=== PATIENT | female | born 1985 ===

== ENCOUNTER 2017-12-26 17:36 | Inpatient (IN) | payer MEDICAID ==
--- NOTE | 2017-12-26 18:19 | C.PDOC ---
History Of Present Illness 32 y/o female presents to the ER w/PMhx of asthma, kidney stones, and chronic kidney disease, presents to the ER complaining of left-sided abdominal pain and left sided back pain which has been present for the past 3 days. Patient states that she has left-sided kidney stone, she was supposed to have a stent placed but her kidney stone was too large. Patient reports that she had a nephrostomy tube placed by in October 2017. Denies having diarrhea, dysuria, hematuria, nausea, vomiting, fever, chills, abx use, and drug use. Of note, patient has history of kidney infection in 2013. Time Seen by Provider: 12/26/17 18:18 Chief Complaint (Nursing): Abdominal Pain History Per: Patient History/Exam Limitations: no limitations Onset/Duration Of Symptoms: Days Current Symptoms Are (Timing): Still Present Past Medical History Reviewed: Historical Data, Nursing Documentation, Vital Signs Vital Signs: Last Vital Signs Temp 98.2 F 12/27/17 07:40 Pulse 80 12/27/17 07:40 Resp 20 12/27/17 07:40 BP 100/65 12/27/17 07:40 Pulse Ox 100 12/27/17 07:40 - Medical History PMH: Asthma, Kidney Stones, Chronic Kidney Disease Other Surgeries: Hx of surgeries Family History: States: No Known Family Hx - Social History Hx Alcohol Use: No Hx Substance Use: No - Immunization History Hx Tetanus Toxoid Vaccination: No Hx Influenza Vaccination: No Hx Pneumococcal Vaccination: No Review Of Systems Except As Marked, All Systems Reviewed And Found Negative. Constitutional: Negative for: Fever, Chills Gastrointestinal: Positive for: Abdominal Pain. Negative for: Nausea, Vomiting, Diarrhea Genitourinary: Negative for: Dysuria, Hematuria Musculoskeletal: Positive for: Back Pain Physical Exam - Physical Exam Appears: Non-toxic, No Acute Distress Skin: Normal Color, Warm, Dry Head: Atraumatic, Normacephalic Eye(s): bilateral: Normal Inspection Nose: Normal Oral Mucosa: Moist Neck: Supple, Other (no meningeal signs) Chest: Symmetrical Cardiovascular: Rhythm Regular Respiratory: Normal Breath Sounds, No Rales, No Rhonchi, No Wheezing Gastrointestinal/Abdominal: Soft, Tenderness (LUQ and LLQ tenderness), No Guarding, No Rebound, Other (left-sided nephrostomy tube) Back: No CVA Tenderness Neurological/Psych: Oriented x3, Normal Speech, Normal Motor, Normal Sensation ED Course And Treatment - Laboratory Results Result Diagrams: 12/26/17 19:16 12/26/17 19:16 O2 Sat by Pulse Oximetry: 100 (RA) Pulse Ox Interpretation: Normal Medical Decision Making Medical Decision Making: Nephrostomy tube draining well: given L sided flank pain. paucity if records here will seek CT Plan: --Labs --UA --CT- Abd & Pelv. CT w/ Ureteral widening/ fullness on the left, however normal nephrostomy tube drainage. No signs of pyelo per CT Ovarian mass vs cyst on L, TVUS ordered. Pain not relapsing remitting- u/l torsion Given utereal widening/fullness on the left, w/ L flank pain and concominant finding of L ovarian cyst/mass will seek uro consult. [address] Codi Herbert, Away. Consulted Codi Dawson- to see in AM. UC. consulted Dr. Parker (hosp)- admit to his service rocephin started for L smelly nephrotomy, cloudy Disposition - Disposition Disposition: HOSPITALIZED Disposition Time: 21:50 Condition: GOOD - Clinical Impression Clinical Impression: Left flank pain - Scribe Statement The provider has reviewed the documentation as recorded by the Naomiibxiomara Nixon Provider Attestation: All medical record entries made by the Scribe were at my direction and personally dictated by me. I have reviewed the chart and agree that the record accurately reflects my personal performance of the history, physical exam, medical decision making, and the department course for this patient. I have also personally directed, reviewed, and agree with the discharge instructions and disposition.
[2017-12-26 19:19] LABS: BASO # 0.1 K/uL (0.0-0.2); BASO % 0.6 % (0.0-2.0); EOS # 0.3 K/uL (0.0-0.7); HEMOGLOBIN 12.7 g/dL (11.0-16.0); LYMPH # 2.8 K/uL (1.0-4.3); MEAN CELL VOLUME 80.2 fL (81.0-99.0); MEAN CORPUSCULAR HEMOGLOBIN 28.3 pg (27.0-31.0); MEAN CORPUSCULAR HGB CONC 35.3 g/dL (33.0-37.0); MEAN PLATELET VOLUME 7.4 fL (7.2-11.7); MONO # 0.5 K/uL (0.0-0.8); MONO % 5.6 % (0.0-10.0); NEUT # 4.7 K/uL (1.8-7.0); NEUT % 56.8 % (50.0-75.0); NRBC % 0.1 % (0.0-2.0); RBC 4.49 Mil/uL (3.80-5.20); RED CELL DISTRIBUTION WIDTH 14.3 % (11.5-14.5); WHITE BLOOD COUNT 8.3 K/uL (4.8-10.8)
[2017-12-26 19:22] LABS: SQUAMOUS EPITHIAL 3 /hpf (0-5); URINE BILIRUBIN NEGATIVE (NEGATIVE); URINE BLOOD NEGATIVE (NEGATIVE); URINE CLARITY Clear (Clear); URINE COLOR Yellow (YELLOW); URINE GLUCOSE (UA) NORMAL (Normal); URINE LEUKOCYTE ESTERASE TRACE Leu/uL (Negative); URINE PROTEIN NEGATIVE (NEGATIVE); URINE UROBILINOGEN NORMAL mg/dL (0.2-1.0)
[2017-12-26 19:33] LABS: ALB/GLOB RATIO 1.4 (1.0-2.1); ALBUMIN 4.4 g/dL (3.5-5.0); ALT/SGPT 16 U/L (9-52); AST/SGOT 14 U/L (14-36); BLOOD UREA NITROGEN 11 mg/dL (7-17); CALCIUM 9.6 mg/dl (8.6-10.4); GFR NON-AFRICAN AMERICAN > 60; LIPASE 236 U/L (23-300)
[2017-12-26] MEDS ORDERED: Iodixanol 320 MG/ML 100 ML BOTTLE IV ONE (20:07)
[2017-12-26 22:11] LABS: URINE BACTERIA MANY (<OCC); URINE BILIRUBIN NEGATIVE (NEGATIVE); URINE BLOOD 2+ (NEGATIVE); URINE CLARITY Turbid (Clear); URINE COLOR Yellow (YELLOW); URINE GLUCOSE (UA) NORMAL (Normal); URINE LEUKOCYTE ESTERASE 3+ Leu/uL (Negative); URINE PROTEIN 3+ mg/dL (NEGATIVE); URINE UROBILINOGEN NORMAL mg/dL (0.2-1.0)
[2017-12-26] MEDS ORDERED: cefTRIAXone 1 gm 1 GM/100 ML BAG IVPB ONE (22:31)
[2017-12-26] MEDS ORDERED: Sodium Chloride 0.9% 1,000 ML ONE (22:31)
[2017-12-26] MEDS: Sodium Chloride 0.9% 1,000 ML IV SCH (22:37)
[2017-12-27 01:06] VITALS: RESP 20
[2017-12-27] MEDS: Sodium Chloride 0.9% 1,000 ML IV SCH ×5 (06:00→21:44)
--- NOTE | 2017-12-27 11:27 | CT ---
Date of service: 12/26/2017 PROCEDURE: CT Abdomen and Pelvis with contrast HISTORY: L nephrostomy tube, LUQ pain COMPARISON: None available TECHNIQUE: Contrast dose: 100 mL Visipaque IV Radiation dose: Total exam DLP = 949.91 mGy-cm. This CT exam was performed using one or more of the following dose reduction techniques: Automated exposure control, adjustment of the mA and/or kV according to patient size, and/or use of iterative reconstruction technique. FINDINGS: LOWER THORAX: Mild scattered bilateral lower lobe ground-glass infiltrates/atelectasis. Partially imaged right middle lobe atelectasis. No visible pleural effusion or pneumothorax. LIVER: Unremarkable. GALLBLADDER AND BILE DUCTS: Unremarkable. PANCREAS: Unremarkable. SPLEEN: Unremarkable. ADRENALS: Unremarkable. KIDNEYS AND URETERS: The right kidney enhances uniformly. No evidence of hydronephrosis or obstructing calculus on the right. Markedly atrophic left kidney. Nephrostomy tube noted at the level the lower left renal collecting system. Dilatation of the proximal left ureter to the level of 1.4 x 0.8 cm calcification noted at approximately the mid ureter (series 3, image 121). VASCULATURE: No aortic aneurysm. BOWEL: Stomach is nondistended. Lack of oral contrast limits evaluation for bowel pathology. Bowel loops appear within normal limits of caliber without evidence of obstruction. APPENDIX: The appendix appears within normal limits of caliber. No secondary signs of acute appendicitis. PERITONEUM: No significant free fluid. No definite free air. LYMPH NODES: No bulky adenopathy identified. BLADDER: Under distended urinary bladder limits evaluation. REPRODUCTIVE: Uterus is present. Left adnexal cystic mass measures approximately 3 cm and likely arises from the left ovary. BONES: No acute osseous abnormality is detected. OTHER FINDINGS: None. IMPRESSION: Markedly atrophic left kidney. Nephrostomy tube noted at the level the lower left renal collecting system. Dilatation of the proximal left ureter to the level of 1.4 x 0.8 cm calcification noted at approximately the mid ureter. Left adnexal cystic mass measures approximately 3 cm and likely arises from the left ovary. Recommend further evaluation with pelvic ultrasound. Additional findings as above. Preliminary impression was provided by [employer]
--- NOTE | 2017-12-27 16:13 | CP.PCM.CON ---
Past Patient History - Past Social History Smoking Status: Never Smoked - CARDIAC Hx Cardiac Disorders: No - PULMONARY Hx Asthma: Yes - NEUROLOGICAL Hx Neurological Disorder: No - HEENT Hx HEENT Problems: No - RENAL Hx Chronic Kidney Disease: Yes Hx Kidney Stones: Yes - ENDOCRINE/METABOLIC Hx Endocrine Disorders: No - HEMATOLOGICAL/ONCOLOGICAL Hx Blood Disorders: No - INTEGUMENTARY Hx Dermatological Problems: No - MUSCULOSKELETAL/RHEUMATOLOGICAL Hx Musculoskeletal Disorders: No Hx Falls: No - GASTROINTESTINAL Hx Gastrointestinal Disorders: No - GENITOURINARY/GYNECOLOGICAL Hx Genitourinary Disorders: No - PSYCHIATRIC Hx Substance Use: No - SURGICAL HISTORY Hx Surgeries: Yes Other/Comment: Left Nephrostomy tube - ANESTHESIA Hx Anesthesia: Yes Hx Anesthesia Reactions: No Meds Allergies/Adverse Reactions: Allergies Allergy/AdvReac Type Severity Reaction Status Date / Time apple Allergy Verified 12/26/17 18:05 mas Allergy Verified 12/26/17 18:05 kiwi Allergy Verified 12/26/17 18:05 pistachio nut Allergy Verified 12/26/17 18:05 tomato Allergy Verified 12/26/17 18:05 - Medications Medications: Current Medications Acetaminophen (Tylenol 325mg Tab) 650 mg PO Q6 PRN PRN Reason: Pain, moderate (4-7) Last Admin: 12/27/17 13:04 Dose: 650 mg Ceftriaxone Sodium 1 gm/ (Sodium Chloride) 100 mls @ 100 mls/hr IVPB DAILY [facility]; Protocol Last Admin: 12/27/17 09:28 Dose: 100 mls/hr Sodium Chloride (Sodium Chloride 0.9%) 1,000 mls @ 150 mls/hr IV .Q6H40M [facility] Last Admin: 12/27/17 14:37 Dose: 150 mls/hr Pneumococcal Polyvalent Vaccine (Pneumovax 23 Vaccine) 0.5 ml IM .ONCE ONE Stop: 12/28/17 10:01 Results - Vital Signs Recent Vital Signs: Last Vital Signs Temp 98.2 F 12/27/17 07:40 Pulse 80 12/27/17 07:40 Resp 20 12/27/17 07:40 BP 100/65 12/27/17 07:40 Pulse Ox 100 12/27/17 13:11 - Labs Result Diagrams: 12/26/17 19:16 12/26/17 19:16 Labs: Laboratory Results - last 24 hr 12/26/17 12/26/17 12/26/17 19:00 19:16 19:16 WBC 8.3 RBC 4.49 Hgb 12.7 Hct 36.0 MCV 80.2 L MCH 28.3 MCHC 35.3 RDW 14.3 Plt Count 308 MPV 7.4 Neut % (Auto) 56.8 Lymph % (Auto) 34.0 [place] % (Auto) 5.6 Eos % (Auto) 3.0 Baso % (Auto) 0.6 Neut # (Auto) 4.7 Lymph # (Auto) 2.8 [place] # (Auto) 0.5 Eos # (Auto) 0.3 Baso # (Auto) 0.1 Sodium 141 Potassium 3.7 Chloride 105 Carbon Dioxide 26 Anion Gap 14 BUN 11 Creatinine 0.9 Est GFR ( Amer) > 60 Est GFR (Non-Af Amer) > 60 Random Glucose 98 Calcium 9.6 Magnesium 1.8 Total Bilirubin 0.3 AST 14 ALT 16 Alkaline Phosphatase 69 Total Protein 7.6 Albumin 4.4 Globulin 3.2 Albumin/Globulin Ratio 1.4 Lipase 236 Urine Color Yellow Urine Clarity Clear Urine pH 5.0 Ur Specific [place] 1.024 Urine Protein Negative Urine Glucose (UA) Normal Urine Ketones Negative Urine Blood Negative Urine Nitrate Negative Urine Bilirubin Negative Urine Urobilinogen Normal Ur Leukocyte Esterase Trace Urine WBC (Auto) 9 H Urine RBC (Auto) 3 Ur Squamous Epith Cells 3 Urine Bacteria 12/26/17 21:55 WBC RBC Hgb Hct MCV MCH MCHC RDW Plt Count MPV Neut % (Auto) Lymph % (Auto) [place] % (Auto) Eos % (Auto) Baso % (Auto) Neut # (Auto) Lymph # (Auto) [place] # (Auto) Eos # (Auto) Baso # (Auto) Sodium Potassium Chloride Carbon Dioxide Anion Gap BUN Creatinine Est GFR ( Amer) Est GFR (Non-Af Amer) Random Glucose Calcium Magnesium Total Bilirubin AST ALT Alkaline Phosphatase Total Protein Albumin Globulin Albumin/Globulin Ratio Lipase Urine Color Yellow Urine Clarity Turbid Urine pH 7.0 Ur Specific [place] 1.008 Urine Protein 3+ H Urine Glucose (UA) Normal Urine Ketones Negative Urine Blood 2+ H Urine Nitrate Negative Urine Bilirubin Negative Urine Urobilinogen Normal Ur Leukocyte Esterase 3+ H Urine WBC (Auto) 1294 H Urine RBC (Auto) 191 H Ur Squamous Epith Cells Urine Bacteria Many H Assessment & Plan - Assessment and Plan (Free Text) Assessment: IMP: HX OF UROLITHIASIS HX OF L HYDRONEPHROSIS ABD PAIN, FLANK PAIN PROBABLE OVARIAN CYST FULL NOTE TBD YS - Date & Time Date: 12/27/17 Time: 16:13
--- NOTE | 2017-12-27 17:06 | CP.PCM.HP ---
Past Patient History - Past Social History Smoking Status: Never Smoked - CARDIAC Hx Cardiac Disorders: No - PULMONARY Hx Asthma: Yes - NEUROLOGICAL Hx Neurological Disorder: No - HEENT Hx HEENT Problems: No - RENAL Hx Chronic Kidney Disease: Yes Hx Kidney Stones: Yes - ENDOCRINE/METABOLIC Hx Endocrine Disorders: No - HEMATOLOGICAL/ONCOLOGICAL Hx Blood Disorders: No - INTEGUMENTARY Hx Dermatological Problems: No - MUSCULOSKELETAL/RHEUMATOLOGICAL Hx Musculoskeletal Disorders: No Hx Falls: No - GASTROINTESTINAL Hx Gastrointestinal Disorders: No - GENITOURINARY/GYNECOLOGICAL Hx Genitourinary Disorders: No - PSYCHIATRIC Hx Substance Use: No - SURGICAL HISTORY Hx Surgeries: Yes Other/Comment: Left Nephrostomy tube - ANESTHESIA Hx Anesthesia: Yes Hx Anesthesia Reactions: No Meds Allergies/Adverse Reactions: Allergies Allergy/AdvReac Type Severity Reaction Status Date / Time apple Allergy Verified 12/26/17 18:05 mas Allergy Verified 12/26/17 18:05 kiwi Allergy Verified 12/26/17 18:05 pistachio nut Allergy Verified 12/26/17 18:05 tomato Allergy Verified 12/26/17 18:05 Results - Vital Signs Recent Vital Signs: Last Vital Signs Temp 98.3 F 12/27/17 16:00 Pulse 52 L 12/27/17 16:00 Resp 20 12/27/17 16:00 BP 111/69 12/27/17 16:00 Pulse Ox 99 12/27/17 16:00 - Labs Result Diagrams: 12/26/17 19:16 12/26/17 19:16 Labs: Laboratory Results - last 24 hr 12/26/17 12/26/17 12/26/17 19:00 19:16 19:16 WBC 8.3 RBC 4.49 Hgb 12.7 Hct 36.0 MCV 80.2 L MCH 28.3 MCHC 35.3 RDW 14.3 Plt Count 308 MPV 7.4 Neut % (Auto) 56.8 Lymph % (Auto) 34.0 [place] % (Auto) 5.6 Eos % (Auto) 3.0 Baso % (Auto) 0.6 Neut # (Auto) 4.7 Lymph # (Auto) 2.8 [place] # (Auto) 0.5 Eos # (Auto) 0.3 Baso # (Auto) 0.1 Sodium 141 Potassium 3.7 Chloride 105 Carbon Dioxide 26 Anion Gap 14 BUN 11 Creatinine 0.9 Est GFR ( Amer) > 60 Est GFR (Non-Af Amer) > 60 Random Glucose 98 Calcium 9.6 Magnesium 1.8 Total Bilirubin 0.3 AST 14 ALT 16 Alkaline Phosphatase 69 Total Protein 7.6 Albumin 4.4 Globulin 3.2 Albumin/Globulin Ratio 1.4 Lipase 236 Urine Color Yellow Urine Clarity Clear Urine pH 5.0 Ur Specific [place] 1.024 Urine Protein Negative Urine Glucose (UA) Normal Urine Ketones Negative Urine Blood Negative Urine Nitrate Negative Urine Bilirubin Negative Urine Urobilinogen Normal Ur Leukocyte Esterase Trace Urine WBC (Auto) 9 H Urine RBC (Auto) 3 Ur Squamous Epith Cells 3 Urine Bacteria 12/26/17 21:55 WBC RBC Hgb Hct MCV MCH MCHC RDW Plt Count MPV Neut % (Auto) Lymph % (Auto) [place] % (Auto) Eos % (Auto) Baso % (Auto) Neut # (Auto) Lymph # (Auto) [place] # (Auto) Eos # (Auto) Baso # (Auto) Sodium Potassium Chloride Carbon Dioxide Anion Gap BUN Creatinine Est GFR ( Amer) Est GFR (Non-Af Amer) Random Glucose Calcium Magnesium Total Bilirubin AST ALT Alkaline Phosphatase Total Protein Albumin Globulin Albumin/Globulin Ratio Lipase Urine Color Yellow Urine Clarity Turbid Urine pH 7.0 Ur Specific [place] 1.008 Urine Protein 3+ H Urine Glucose (UA) Normal Urine Ketones Negative Urine Blood 2+ H Urine Nitrate Negative Urine Bilirubin Negative Urine Urobilinogen Normal Ur Leukocyte Esterase 3+ H Urine WBC (Auto) 1294 H Urine RBC (Auto) 191 H Ur Squamous Epith Cells Urine Bacteria Many H
[2017-12-28] MEDS: Sodium Chloride 0.9% 1,000 ML IV SCH ×3 (02:33→09:07)
--- NOTE | 2017-12-28 07:43 | HP ---
CHIEF COMPLAINT: Abdominal pain. HISTORY OF PRESENT ILLNESS: This is a 32-year-old female with history of kidney stone. She states that she has a nephrostomy on the left side, and she was supposed to be followed up by Dr. Kincaid. The patient came to emergency room last night with left-sided back pain for three days. According to the patient, she had a stone in the left side of the kidney and she was told to have a stent placed, but kidney stone was too big. The patient was given a nephrostomy tube by Dr. Kincaid in 10/2017, and the patient is vague, she is agitated, and she does not answer all the questions. It is not known if she ever go back to Dr. Kincaid's office. The patient's complaint today is flank pain, fever, chills, rigors. She denies any nausea, vomiting, diarrhea. She denies any history of polyuria, polydipsia, or polyphagia. She denies any history of hematuria or pyuria. She denies any cough, sore throat, or runny nose. PAST MEDICAL HISTORY: Nothing significant. SOCIAL HISTORY: She denies smoking and drinking. CURRENT MEDICATION: Tylenol. PHYSICAL EXAMINATION: GENERAL: This is a young female, who is agitated. VITAL SIGNS: BP 111/69, pulse 52, respiratory rate 20, temperature 98.3. SKIN: Normal. HEENT: Atraumatic and normocephalic. Negative pallor. Negative jaundice. Extraocular movements are intact. NECK: Supple. No JVD. No lymph node. No thyromegaly. No carotid bruit. CHEST WALL: Bilateral symmetrical expansion. LUNGS: Clear. No rales. No rhonchi. CVS: S1 and S2, regular. No heave. No thrill. ABDOMEN: Soft. Nontender. Bowel sounds are positive. Left-sided flank, there is a nephrostomy tube with a bag attached to it. RECTAL: No masses. No bleed. EXTREMITIES: No clubbing, cyanosis, or edema. RELAY WORKER: Awake, alert, oriented x3. ASSESSMENT: 1. Nephrolithiasis. It seems like stone, although the patient has a left-sided nephrostomy. 2. Urinary tract infection. PLAN: Admit. Detailed orders written. The patient is seen by Urology. Valdez Ordonez, BERNICED: 12/27/2017 22:45:45 [facility] # [id number]
[2017-12-28 08:07] VITALS: O2SAT 100
--- NOTE | 2017-12-28 09:33 | PCM.URO ---
Urology Progress Note - Subjective Abdominal Pain: Yes (see note from 12/[address] daiana hernandez . from gu standpoint ,) Flank Pain: Yes (standpoint we recommend a noncontrast ct , perhaps her stone is still there) Nausea: Yes (we also recommend nephrostogram by IR to evaluate if there is any obstructi) Vomiting: Yes (previously the nephrostomy tube inserred at [facility] because of obstruction and) Dysuria: Yes (we could not place a stent /full note to be dictated) - Objective Intake & Output: Intake & Output 12/27/17 12/28/17 12/28/17 18:59 06:59 18:59 Intake Total 1200 1600 Output Total 35 100 Balance 1165 1500 Intake: Intake, IV Amount 1200 1200 Right Antecubital 1200 1200 Oral 400 Output: Drainage 35 100 Left 35 100 Other: # Voids Urine, Voided 2 Vital Signs: Vital Signs - 24 hr 12/27/17 12/27/17 12/28/17 13:11 16:00 00:04 Temperature 98.3 F 97.5 F L Pulse Rate 52 L 55 L Respiratory 20 20 Rate Blood Pressure 111/69 118/75 O2 Sat by Pulse 100 99 97 Oximetry 12/28/17 08:00 Temperature 98.6 F Pulse Rate 46 L Respiratory 20 Rate Blood Pressure 124/66 O2 Sat by Pulse 100 Oximetry
[2017-12-28] MEDS ORDERED: Pneumococcal 23-Valent Vaccine IM ONE (10:00)
[2017-12-28] MEDS ORDERED: Cefepime 1 GM in Sodium Chloride 0.9% 50 ML IVPB SCH (10:00)
[2017-12-28] MEDS ORDERED: Oxycodone/Acetaminophen 5/325 mg Tab PO PRN (11:01)
--- NOTE | 2017-12-28 12:04 | CT ---
Date of service: 2017-12-28 10:04:54 PROCEDURE: CT Abdomen and Pelvis with Oral contrast. HISTORY: compare with previous ct scan COMPARISON: None. TECHNIQUE: Contiguous axial images of the abdomen and pelvis performed without contrast.. Additional 2D sagittal and coronal reformats generated. . Radiation dose: Total exam DLP = 994.99 mGy-cm. This CT exam was performed using one or more of the following dose reduction techniques: Automated exposure control, adjustment of the mA and/or kV according to patient size, and/or use of iterative reconstruction technique. FINDINGS: LOWER THORAX: Mild atelectasis/scarring changes both lung bases including the middle lobe. No effusion or basilar pneumothorax. Heart size within range of normal. No significant pericardial effusion. Small hiatal hernia. LIVER: Liver is upper limits of normal. No obvious parenchymal masses or collections. GALLBLADDER AND BILE DUCTS: Gallbladder is physiologically distended. No evidence of intraluminal gallbladder calculi. PANCREAS: Unremarkable. No mass. No ductal dilatation. SPLEEN: Unremarkable. No splenomegaly. ADRENALS: Unremarkable. KIDNEYS AND URETERS: Three demonstrated is an in situ left-sided nephrostomy tube in good position. Again noted is left-sided hydronephrosis secondary to a large approximately 14.2 x 9.0 mm calculus in the mid to lower left ureter. Approximately less than 4 mm nonobstructing calculus again seen posterolateral cortex mid pole left kidney. Left kidney remains atrophic in appearance likely due to longstanding hydronephrosis; superinfection cannot be excluded. Right kidney unremarkable. BLADDER: Urinary bladder is incompletely distended which part accounts for thick-walled appearance. Correlation with urinalysis recommended to exclude the possibility of a cystitis. REPRODUCTIVE: Unremarkable. APPENDIX: Normal-appearing appendix. BOWEL: Evaluation of the bowel is limited due to the lack of oral contrast material. Stomach is incompletely distended. Visualized loops of small bowel exhibit normal contour and caliber. No evidence of acute mechanical small bowel obstruction. Stool and air seen throughout the large bowel. There appear to be a few scattered colonic diverticula. No evidence of acute diverticulitis. PERITONEUM: Unremarkable. No fluid collection. No free air. LYMPH NODES: Unremarkable. No enlarged lymph nodes. VASCULATURE: Unremarkable. No aortic aneurysm. BONES: All of multilevel degenerative spondylosis of the lower thoracic and lumbar spine. There are no acute compression fractures no retropulsed fragments. Vertebral bodies exhibit normal stature. Vertebral bodies and facets normally aligned. Note made of a small central and bilateral disc herniation at L5-S1 level. OTHER FINDINGS: None. IMPRESSION: Redemonstrated is a large obstructing calculus within the mid to lower the left ureter with persistent dilatation of the proximal left ureter despite in situ well placed left-sided nephrostomy tube. The left kidney remains atrophic. Thickened urinary bladder wall likely due to incomplete distention however correlation with urinalysis recommended to exclude cystitis.
[2017-12-28 16:23] VITALS: BP 116/69; PULSE 42; TEMP 97.7
--- NOTE | 2017-12-28 17:26 | PCM.URO ---
Urology Progress Note - Objective Lab Studies: Reviewed (plans : out pt treatment antibiotics as ordered and out pt treatment see previous notes and full note to be dictated) Lab Results Last 24 Hours: Laboratory Results - last 24 hr 12/28/17 10:03 Urine HCG, Qual Negative Intake & Output: Intake & Output 12/27/17 12/28/17 12/28/17 18:59 06:59 18:59 Intake Total 1200 1600 1600 Output Total 35 100 35 Balance 1165 1500 1565 Intake: Intake, IV Amount 1200 1200 1200 Right Antecubital 1200 1200 1200 Oral 400 400 Output: Drainage 35 100 35 Left 35 100 35 Other: # Voids Urine, Voided 2 3 # Bowel Movements 0 Vital Signs: Vital Signs - 24 hr 12/28/17 12/28/17 12/28/17 00:04 08:00 16:21 Temperature 97.5 F L 98.6 F 97.7 F Pulse Rate 55 L 46 L 42 L Respiratory 20 20 20 Rate Blood Pressure 118/75 124/66 116/69 O2 Sat by Pulse 97 100 100 Oximetry
--- NOTE | 2017-12-28 23:51 | CP.PCM.DIS ---
Provider - Provider Date of Admission: 12/26/17 21:54 Attending physician: Valdez Ordonez MD Hospital Course - Lab Results Lab Results: Micro Results 12/26/17 22:00 Urine,Kidney Urine Culture - Final Pseudomonas Aeruginosa Most Recent Lab Values WBC 8.3 K/uL (4.8-10.8) 12/26/17 19:16 RBC 4.49 Mil/uL (3.80-5.20) 12/26/17 19:16 Hgb 12.7 g/dL (11.0-16.0) 12/26/17 19:16 Hct 36.0 % (34.0-47.0) 12/26/17 19:16 MCV 80.2 fL (81.0-99.0) L 12/26/17 19:16 MCH 28.3 pg (27.0-31.0) 12/26/17 19:16 MCHC 35.3 g/dL (33.0-37.0) 12/26/17 19:16 RDW 14.3 % (11.5-14.5) 12/26/17 19:16 Plt Count 308 K/uL (130-400) 12/26/17 19:16 MPV 7.4 fL (7.2-11.7) 12/26/17 19:16 Neut % (Auto) 56.8 % (50.0-75.0) 12/26/17 19:16 Lymph % (Auto) 34.0 % (20.0-40.0) 12/26/17 19:16 [place] % (Auto) 5.6 % (0.0-10.0) 12/26/17 19:16 Eos % (Auto) 3.0 % (0.0-4.0) 12/26/17 19:16 Baso % (Auto) 0.6 % (0.0-2.0) 12/26/17 19:16 Neut # (Auto) 4.7 K/uL (1.8-7.0) 12/26/17 19:16 Lymph # (Auto) 2.8 K/uL (1.0-4.3) 12/26/17 19:16 [place] # (Auto) 0.5 K/uL (0.0-0.8) 12/26/17 19:16 Eos # (Auto) 0.3 K/uL (0.0-0.7) 12/26/17 19:16 Baso # (Auto) 0.1 K/uL (0.0-0.2) 12/26/17 19:16 Sodium 141 mmol/L (132-148) 12/26/17 19:16 Potassium 3.7 mmol/L (3.6-5.2) 12/26/17 19:16 Chloride 105 mmol/L (98-107) 12/26/17 19:16 Carbon Dioxide 26 mmol/L (22-30) 12/26/17 19:16 Anion Gap 14 (10-20) 12/26/17 19:16 BUN 11 mg/dL (7-17) 12/26/17 19:16 Creatinine 0.9 mg/dL (0.7-1.2) 12/26/17 19:16 Est GFR ( Amer) > 60 12/26/17 19:16 Est GFR (Non-Af Amer) > 60 12/26/17 19:16 Random Glucose 98 mg/dL (65-105) 12/26/17 19:16 Calcium 9.6 mg/dl (8.6-10.4) 12/26/17 19:16 Magnesium 1.8 mg/dL (1.6-2.3) 12/26/17 19:16 Total Bilirubin 0.3 mg/dL (0.2-1.3) 12/26/17 19:16 AST 14 U/L (14-36) 12/26/17 19:16 ALT 16 U/L (9-52) 12/26/17 19:16 Alkaline Phosphatase 69 U/L (38-126) 12/26/17 19:16 Total Protein 7.6 g/dL (6.3-8.3) 12/26/17 19:16 Albumin 4.4 g/dL (3.5-5.0) 12/26/17 19:16 Globulin 3.2 gm/dL (2.2-3.9) 12/26/17 19:16 Albumin/Globulin Ratio 1.4 (1.0-2.1) 12/26/17 19:16 Lipase 236 U/L (23-300) 12/26/17 19:16 Urine Color Yellow (YELLOW) 12/26/17 21:55 Urine Clarity Turbid (Clear) 12/26/17 21:55 Urine pH 7.0 (5.0-8.0) 12/26/17 21:55 Ur Specific [place] 1.008 (1.003-1.030) 12/26/17 21:55 Urine Protein 3+ mg/dL (NEGATIVE) H 12/26/17 21:55 Urine Glucose (UA) Normal mg/dL (Normal) 12/26/17 21:55 Urine Ketones Negative mg/dL (NEGATIVE) 12/26/17 21:55 Urine Blood 2+ (NEGATIVE) H 12/26/17 21:55 Urine Nitrate Negative (NEGATIVE) 12/26/17 21:55 Urine Bilirubin Negative (NEGATIVE) 12/26/17 21:55 Urine Urobilinogen Normal mg/dL (0.2-1.0) 12/26/17 21:55 Ur Leukocyte Esterase 3+ [place]/uL (Negative) H 12/26/17 21:55 Urine WBC (Auto) 1294 /hpf (0-5) H 12/26/17 21:55 Urine RBC (Auto) 191 /hpf (0-3) H 12/26/17 21:55 Ur Squamous Epith Cells 3 /hpf (0-5) 12/26/17 19:00 Urine Bacteria Many (<OCC) H 12/26/17 21:55 Urine HCG, Qual Negative (NEGATIVE) 12/28/17 10:03 Discharge Plan - Follow Up Plan Condition: GOOD Disposition: AGAINST MEDICAL ADVICE
== END 2017-12-28 20:40 | disposition left against medical advice (07) | DRG 369 ==
LOC: C.ER 17:36 → C.9E 21:54 → C.3T 22:49
PROVIDERS: ADMIT Internal Medicine; ATTEND Internal Medicine
DX: N83.202 Unspecified ovarian cyst, left side (principal); N39.0 Urinary tract infection, site not specified; N18.9 Chronic kidney disease, unspecified; B96.5 Pseudomonas (aeruginosa) (mallei) (pseudomallei) as the cause of diseases classified elsewhere; N20.2 Calculus of kidney with calculus of ureter; J45.909 Unspecified asthma, uncomplicated; Z93.6 Other artificial openings of urinary tract status; Z87.442 Personal history of urinary calculi; Z91.018 Allergy to other foods

== ENCOUNTER 2018-02-01 09:34 | Day surgery (SDC) | payer MEDICAID ==
--- NOTE | 2018-02-01 09:55 | C.PDOC ---
History Of Present Illness LEFT AMA 12/27 PMhx of asthma, kidney stones, and chronic kidney disease, presents to the ER complaining of left-sided abdominal pain and left sided back pain which has been present for the past 3 days. Patient states that she has left-sided kidney stone, she was supposed to have a stent placed but her kidney stone was too large. Patient reports that she had a nephrostomy tube placed by in October 2017 Time Seen by Provider: 02/01/18 09:53 Chief Complaint (Nursing): Abdominal Pain Past Medical History Vital Signs: Last Vital Signs Temp 98.9 F 02/01/18 09:46 Pulse 95 H 02/01/18 09:46 Resp 18 02/01/18 09:46 BP 108/73 02/01/18 09:46 Pulse Ox 96 02/01/18 09:46 - Medical History PMH: Asthma, Kidney Stones, Chronic Kidney Disease - Social History Hx Alcohol Use: No Hx Substance Use: No - Immunization History Hx Tetanus Toxoid Vaccination: No Hx Influenza Vaccination: No Hx Pneumococcal Vaccination: No ED Course And Treatment O2 Sat by Pulse Oximetry: 96 Disposition - Disposition
--- NOTE | 2018-02-01 10:23 | C.PDOC ---
History Of Present Illness 32 y/o female with history of left kidney stones presents to ED sent by Dr. Keon kincaid for further evaluation of left flank pain. Patient states she called Dr. Kincaid for symptoms yesterday and was advised to come to ED and be NPO since midnight last night. Patient denies dysuria, hematuria, fever, chills or any other complaints at this time. Time Seen by Provider: 02/01/18 09:53 Chief Complaint (Nursing): Abdominal Pain History Per: Patient History/Exam Limitations: no limitations Onset/Duration Of Symptoms: Days Current Symptoms Are (Timing): Still Present Past Medical History Reviewed: Historical Data, Nursing Documentation, Vital Signs Vital Signs: Last Vital Signs Temp 98.9 F 02/01/18 09:46 Pulse 95 H 02/01/18 09:46 Resp 18 02/01/18 09:46 BP 108/73 02/01/18 09:46 Pulse Ox 96 02/01/18 09:46 - Medical History PMH: Asthma, Kidney Stones, Chronic Kidney Disease Surgical History: No Surg Hx Family History: States: No Known Family Hx - Social History Hx Alcohol Use: No Hx Substance Use: No - Immunization History Hx Tetanus Toxoid Vaccination: No Hx Influenza Vaccination: No Hx Pneumococcal Vaccination: No Review Of Systems Constitutional: Negative for: Fever, Chills Gastrointestinal: Positive for: Other (flank pain). Negative for: Nausea, Vomiting Genitourinary: Negative for: Dysuria, Hematuria Musculoskeletal: Negative for: Back Pain Skin: Negative for: Rash Physical Exam - Physical Exam Appears: Non-toxic, No Acute Distress Skin: Warm, Dry, No Rash Head: Atraumatic, Normacephalic Eye(s): bilateral: Normal Inspection Oral Mucosa: Moist Neck: Supple Cardiovascular: Rhythm Regular Respiratory: Normal Breath Sounds, No Rales, No Rhonchi, No Wheezing Gastrointestinal/Abdominal: Soft, Tenderness (left flank ), No Guarding, No Rebound Neurological/Psych: Oriented x3, Normal Speech, Normal Cognition ED Course And Treatment O2 Sat by Pulse Oximetry: 96 (RA) Pulse Ox Interpretation: Normal Disposition - Disposition Disposition: HOSPITALIZED Disposition Time: 10:22 Condition: FAIR - Clinical Impression Clinical Impression: Left flank pain - PA / COLORING ROOM MAN / Resident Statement MD/DO has reviewed & agrees with the documentation as recorded. - Scribe Statement The provider has reviewed the documentation as recorded by the Scribe Maricsa Hood All medical record entries made by the Isaac were at my direction and personally dictated by me. I have reviewed the chart and agree that the record accurately reflects my personal performance of the history, physical exam, medical decision making, and the department course for this patient. I have also personally directed, reviewed, and agree with the discharge instructions and disposition. Decision To Admit - Pt Status Changed To: Hospital Disposition Of: SDS- Endo,OR,Cath,IR - . Bed Request Type: Same Day Surgery Admitting Physician: Ryan Kincaid Patient Diagnosis: Left flank pain
[2018-02-01 10:27] LABS: HCG,QUALITATIVE URINE NEGATIVE (NEGATIVE)
[2018-02-01 10:41] LABS: URINE BILIRUBIN NEGATIVE (NEGATIVE); URINE BLOOD 3+ (NEGATIVE); URINE CLARITY CLOUDY (Clear); URINE COLOR YELLOW (YELLOW); URINE GLUCOSE (UA) NEGATIVE (Normal); URINE PROTEIN 2+ mg/dL (NEGATIVE); URINE UROBILINOGEN 0.2 mg/dL (0.2-1.0)
[2018-02-01 10:52] LABS: SQUAMOUS EPITHIAL 8 /hpf (0-5); URINE BACTERIA FEW (<OCC); URINE LEUKOCYTE ESTERASE 3+ Leu/uL (Negative); WBC CLUMPS MANY /hpf
[2018-02-01 10:52] LABS: BASO % 0.5 % (0.0-2.0); EOS # 0.3 K/uL (0.0-0.7); EOS % 4.2 % (0.0-4.0); HEMOGLOBIN 12.2 g/dL (11.0-16.0); LYMPH # 2.3 K/uL (1.0-4.3); LYMPH % 31.1 % (20.0-40.0); MEAN CELL VOLUME 81.1 fL (81.0-99.0); MEAN CORPUSCULAR HEMOGLOBIN 27.9 pg (27.0-31.0); MEAN CORPUSCULAR HGB CONC 34.4 g/dL (33.0-37.0); MEAN PLATELET VOLUME 8.1 fL (7.2-11.7); MONO # 0.5 K/uL (0.0-0.8); MONO % 7.3 % (0.0-10.0); NEUT # 4.3 K/uL (1.8-7.0); NEUT % 56.9 % (50.0-75.0); RBC 4.37 Mil/uL (3.80-5.20); RED CELL DISTRIBUTION WIDTH 14.8 % (11.5-14.5); WHITE BLOOD COUNT 7.5 K/uL (4.8-10.8)
[2018-02-01 11:57] LABS: BLOOD UREA NITROGEN 14 mg/dL (7-17); CALCIUM 9.5 mg/dl (8.6-10.4); GFR NON-AFRICAN AMERICAN > 60
[2018-02-01] MEDS ORDERED: cefTRIAXone 1 gm 1 GM/100 ML BAG IVPB ONE (13:05)
[2018-02-01] MEDS ORDERED: Iohexol 240 (50 ml) ONE (13:06)
[2018-02-01] MEDS ORDERED: Midazolam 2 MG/2 ML VIAL ONE (13:13)
[2018-02-01] MEDS ORDERED: Propofol 10 mg/ml Inj (20 ML) ONE (13:13)
[2018-02-01] MEDS ORDERED: Acetaminophen-Codeine 300/30 mg Tab PO PRN (13:53)
[2018-02-01] MEDS ORDERED: Gentamicin 80 mg in 0.9% NS 80 MG/100 ML BAG IVPB SCH (14:00)
[2018-02-01] MEDS ORDERED: HYDROmorphone 0.5 mg/0.5 ml ISec IVP PRN (14:18)
--- NOTE | 2018-02-01 14:37 | RAD ---
Date of service: 02/01/2018 HISTORY: LEFT URETERAL STONE COMPARISON: 12/28/2017. CT abdomen and pelvis. FINDINGS: BOWEL: Normal. No obstruction. No free air. BONES: Normal. OTHER FINDINGS: Position of the double J stent catheter(s): Satisfactory position on the left. Nephrostomy catheter again identified. IMPRESSION: Satisfactory position of recently placed left double-J stent catheter.
--- NOTE | 2018-02-01 14:38 | RAD ---
Date of service: 02/01/2018 PROCEDURE: Intraoperative Fluoroscopy. HISTORY: LEFT URETERAL STONE FINDINGS: Fluoroscopic assistance was provided for cystogram and left stent placement. Total fluoroscopic time (continuous mode) utilized during the procedure 12.6 seconds. . Please refer to the operative report from ISAAC Bradshaw, , MD RACHEL. Dose report: DLP [id number] (mGy/m2)
[2018-02-01 15:56] VITALS: BP 116/71; PULSE 77; RESP 18; TEMP 98
[2018-02-01 17:02] VITALS: O2SAT 96
--- NOTE | 2018-02-23 07:58 | OP ---
PROCEDURE DATE: 02/01/2018 PREOPERATIVE DIAGNOSES: Left-sided urolithiasis with a gigantic stone burden in the left ureter, left hydronephrosis, hematuria, decreased functioning of the left kidney, retained with left nephrostomy tube, and also possible left ureteral dysfunction. POSTOPERATIVE DIAGNOSES: Left-sided urolithiasis with a gigantic stone burden in the left ureter, left hydronephrosis, hematuria, decreased functioning of the left kidney, retained with left nephrostomy tube, and also possible left ureteral dysfunction. PROCEDURES: Cystoscopy, removal of the left double J-stent, left ureteroscopy, insertion of a left double J-stent, left retrograde pyelogram. ESTIMATED BLOOD LOSS: Less than 10 mL. COMPLICATIONS: There were no complications. At the termination of the procedure, the patient filled the double J-stent with dangles and the left nephrostomy tube. UROLOGY INDICATIONS: See history and physical for further details. She is a very pleasant, but extremely noncompliant lady, who is here now for the above procedure. See history and physical and see many previous notes from various locations. Extremely pleasant, but extremely noncompliant lady, who has difficulty coming to the emergency room, who came in now saying that her nephrostomy tube is bothering her and she has had hematuria. Initially when I met the patient, she had such a gigantic stone in her left ureter we could not even get a stent in. Subsequently, we were able to get a stent in and then we did a cystoscopy, ureteroscopy, laser lithotripsy. This took such a long time to get her in. At this point, we were here just reinspect the ureter that turns out to be the operative note. We did not see any stones, but the left ureter is not draining very well and some abnormalities, sent those films to the radiologist. At the termination of the procedure, I left the dangle. I would like to repeat a nephrostogram and see how the patient does with the ureter, to see if there is any obstruction even though there is no stone present, I am worried that there are abnormalities of the ureter, I am worried about taking out the nephrostomy tube. Today, we did a ureteroscopy and a retrograde pyelogram and we left dangles. The plan will be for a future nephrostogram and removal of nephrostomy tube once we have taken out the ureteral stent. See below addendum. FINDINGS: The findings today are: 1. No remnant stones. 2. Quite abnormal appearance of the ureter (this abnormality on the ureter may just be secondary to having a stent in for so long. There is definitely no stone present on the ureteroscope and the retrograde pyelogram does not give major indication. On physically looking, the ureteral wall is significantly abnormal. Hence I left the patient with the stent with dangles which I am going to remove and then we will see with a clamped nephrostomy tube how the patient does if she runs into obstruction again. I do want to mention a few things at this point, one is this is a repeat of dictation as I am going through my notes and my memory I specifically remember describing this portion of the dictation. The other is that it is extremely difficult to deal with patient very pleasant but these do not matter, but extremely noncompliant, so I am repeating this dictation later. Since the time of that initial procedure, I spoke to the patient to get the nephrostomy tube out, but before taking it out to reevaluate and do a nephrostogram. The patient indeed will text to me that she is on her way to the hospital. She does not come to the office. She does not come to the hospital, but it is extremely difficult to manage this. I am doing my best completion sake. DESCRIPTION OF PROCEDURE: After obtaining informed consent, the patient was placed on the table. Routine monitors were placed. Time-out was called to confirm the patient and positioning. We introduced the cystoscope via the urethra. We identified the old stent and removed it. We put a wire up to the kidney. We went adjacent to the wire with the ureteroscope. What we noted is the following: I do not see any stones. We were able to gain access to the ureteral orifice pretty well, but what I do note is that the ureteral wall where the stone is is just significantly inflamed in appearance. There is no stone there, but it is irregular (no biopsies taken, I am trying to settle things down, it does not look like a malignancy). It just looks very erythematous and irregular. Multiple pictures are taken and saved. At this point, we were able to go all the way up the ureter. I do not see any stone debris. We also did a retrograde pyelogram, sent those films to the radiologist to read. No major abnormalities. At this point, we had a safety wire in place. We put a double J-stent with dangles. The patient tolerated the procedure without complications. She was brought to the recovery room in stable condition. I do want to mention at this point that we left the patient with stent with dangles. The urologist's plan is as follows: Our plan will be for a nephrostogram. I am leaving the patient with a double J-stent with dangles. We are going to pull that out in a day or two. I am going to leave the patient with a clamped nephrostomy tube and see how she does. We will measure residual and then we would like to do a nephrostogram to see if there is any further obstruction. Again, I have explained to the patient in details my concern is that the ureter at this point is not working well, I need to further address things. Further plans will follow depending on the patient. Again as mentioned, it is very difficult because of compliance issues, but we are going to continue to work. I am trying to assist the patient as quickly and best as possible. The other issue for the patient is her travel. She quite has been ensuring that there is apparently no doctor for her to see locally and she is not able to travel to, the insurance company has recommended that she see somebody in, I think, [place] is what she told me. She is having difficulty getting there for appointment. This limits her ability to get referrals and so at this point, we are treating the patient as an emergency. I have explained to her this is extremely difficult, but more importantly is her health than the referrals and I have asked her to do her best to keep coming back as much as necessary. Ruy Kincaid MD
--- NOTE | 2018-02-23 10:08 | HP ---
UROLOGY EMERGENCY ADMISSION REASON FOR ADMISSION: Urolithiasis, further treatment. HISTORY OF PRESENT ILLNESS: Ms. Leone is a extremely pleasant, but extremely, extremely noncompliant lady, who is very pleasant about the matter, but does not show up for her treatment as outlined. I first met the patient in the [facility]. At that time, she had a humongous stone in the ureter that must have must have formed there. I have discussed with the patient many of these notes have been previously dictated. It looked about a centimeter and a half. At that time, I was consulted. I tried placing a stent. We were not able to. We then did a nephrostomy tube insertion to drain the kidney. The kidneys have already been compromised, but still has reasonable amount of function. I do not the renal scans materials in front of me this minute from the [facility], but to my recollection, it was okay, about 20%. Either way, eventually we discussed with the patient through several phone calls and text messages and . Eventually, I got her back into the hospital. The issue is which place to bring her the [facility] or bring her to the [facility], today she is going the emergency at [facility], but eventually we were able to perform a ureteroscopy and laser of the stone. That is a separately dictated note, but once we had access, that we had a drainage of the kidney, we were willing to work a little harder at the ureter. I explained to the patient that some day most likely she is going to end up needing a ureteral resection and maybe a ureteral reanastomosis. I explained to her that is something I do not do, and most likely, it would be done with minimally invasive technique, but it would not be by way of me, but I will get her to other doctor and gave her a name of the doctor who will be able to take care of this problem. In the meantime, I am waiting to get her nephrostomy tube out. I am also awaiting to reevaluate the ureter with a repeat ureteroscopy. We know that we will not for quite sometime to her ureter and gain access from above and below. So that was such an obstructive system, we could not even get a wire past. See the previous notes from the [facility]. At that time, she went there, we did ureteroscopy, laser lithotripsy in an extremely difficult way. The stone was so embedded in the wall that at first it looked like it was lasering into ureteral wall, but in fact it was a little covered on the stone, and then we lasered the stone, and we were still not at the wall. At that time, we did multiple x-rays. We had never even extravasated. We were able to then get through to access that we were clearing the stone, and we had now a double J stent in place. At this point, she is here now as an emergency because she came to the emergency room with a flank pain and complained that her stent and nephrostomy tube are bothering her. See the plans listed below. We were thinking of taking out the nephrostomy tube, but first thing we are going to do is the ureteroscopy and if there is any remnant stone, do a laser lithotripsy. PAST MEDICAL AND SURGICAL HISTORY: As listed on the chart but essentially unremarkable from a urology standpoint. REVIEW OF SYSTEMS: As listed above. No weight loss, chest pain, or shortness of breath and the like. Socially, essentially otherwise unremarkable. She comes to the emergency room with a boyfriend/. PHYSICAL EXAMINATION: GENERAL: Well nourished female, body habitus noted. VITAL SIGNS: Are noted. LUNGS: Clear. HEART: Normal S1 and S2. ABDOMEN: Overall soft and nontender. No flank mass appreciated. PELVIC: Deferred for now. I should mention that there are no pelvic or rectal masses detected . LABORATORY VALUES: See chart. DIAGNOSES: 1. Urolithiasis. 2. Hematuria. 3. Completely obstructed left ureter. 4. Left nephrostomy tube insertion. PLAN: Once the patient is in the emergency room it takes many phone calls, any time she runs to emergency room, ____ operating room. So, we are going to plan to do the following. We are going to plan for a ureteroscopy and if there are any stones left, to have a laser lithotripsy. I am considering doing a removal of nephrostomy tube depending on how things go. So, the plan is: 1. . See my operative note. 2. ureteroscopy. 3. Laser lithotripsy. 4. ____. ADDENDUM: See my operative note. The patient, at the time of ureteroscopy, the ureter does not appear to be normal. Again, as mentioned, in the beginning of the history and physical, my concern is that eventually she is going to need a ureteral resection and a ureteral end-to-end anastomosis if the gap is not too big. That is not for today. So in the end, we did a ureteroscopy, laser lithotripsy, insertion of a stent with dangles. I am planning to remove that, and then I will wait for the nephrostomy tube to be removed next week. I am going to plan for a nephrostogram. All this explained to the patient, with pictures and drawings at great length, and the patient completely understands. She does have difficulty with being able to mobilize to get to the hospital. Once here, as an emergency, we are going to admit her. The patient is not compliant, and so any time that she has come to the emergency room, if there is absolute emergency, she does not come in crying lorenzo. If she is saying that she is having a lot of pain, we try to act as immediately as possible. Further plans will follow. Ruy Kincaid MD
== END 2018-02-01 18:32 | disposition home or self-care (01) ==
LOC: C.ER 09:34 → C.SDS 10:27
PROVIDERS: ATTEND Urology
DX: N13.2 Hydronephrosis with renal and ureteral calculous obstruction (principal); J45.909 Unspecified asthma, uncomplicated; N18.9 Chronic kidney disease, unspecified; Z87.442 Personal history of urinary calculi; Z91.19 Patient's noncompliance with other medical treatment and regimen
CPT/HCPCS: 36415; 52356; 74018; 80048; 81001; 84703; 85025; 99285; C1725; C1758; C1769; J0696; J1580; Q9966

== ENCOUNTER 2018-02-21 17:03 | Emergency (ER) | payer MEDICAID ==
[2018-02-21 17:15] VITALS: RESP 18
[2018-02-21 18:20] LABS: BASO # 0.1 K/uL (0.0-0.2); BASO % 0.9 % (0.0-2.0); EOS # 0.3 K/uL (0.0-0.7); EOS % 3.5 % (0.0-4.0); HEMOGLOBIN 12.6 g/dL (11.0-16.0); LYMPH # 2.5 K/uL (1.0-4.3); LYMPH % 31.3 % (20.0-40.0); MEAN CELL VOLUME 80.1 fL (81.0-99.0); MEAN CORPUSCULAR HEMOGLOBIN 27.8 pg (27.0-31.0); MEAN CORPUSCULAR HGB CONC 34.7 g/dL (33.0-37.0); MEAN PLATELET VOLUME 7.6 fL (7.2-11.7); MONO # 0.6 K/uL (0.0-0.8); MONO % 7.5 % (0.0-10.0); NEUT # 4.5 K/uL (1.8-7.0); NEUT % 56.8 % (50.0-75.0); NRBC % 0.1 % (0.0-2.0); RBC 4.54 Mil/uL (3.80-5.20); RED CELL DISTRIBUTION WIDTH 15.2 % (11.5-14.5); WHITE BLOOD COUNT 7.9 K/uL (4.8-10.8)
[2018-02-21 18:37] LABS: ALB/GLOB RATIO 1.4 (1.0-2.1); ALBUMIN 4.5 g/dL (3.5-5.0); ALT/SGPT 14 U/L (9-52); AST/SGOT 20 U/L (14-36); BLOOD UREA NITROGEN 21 mg/dL (7-17); CALCIUM 9.5 mg/dl (8.6-10.4); GFR NON-AFRICAN AMERICAN > 60
--- NOTE | 2018-02-21 18:38 | C.PDOC ---
History Of Present Illness 32 year old female presents to the ED for evaluation of discomfort around nephrostomy tube site. Patient underwent the nephrostomy tube placement secondary to having a large kidney stone, which was addressed by Dr. Keon Kincaid. Patient has had the tube in place for one month. She reports discomfort around the site, but states the tube is still draining. Patient spoke with Dr. Kincaid about this two days ago and was instructed to report to the ED for evaluation. She denies fever, chills, or any urinary symptoms at this time. Time Seen by Provider: 02/21/18 17:43 Chief Complaint (Nursing): Female Genitourinary History Per: Patient History/Exam Limitations: no limitations Onset/Duration Of Symptoms: Days Current Symptoms Are (Timing): Still Present Quality Of Discomfort: denies: "Pain" Associated Symptoms: denies: Fever, Chills, Urinary Symptoms Additional History Per: Patient Abnormal Vaginal Bleeding: No Past Medical History Reviewed: Historical Data, Nursing Documentation, Vital Signs Vital Signs: Last Vital Signs Temp 98.2 F 02/21/18 17:11 Pulse 89 02/21/18 17:11 Resp 18 02/21/18 17:11 BP 129/79 02/21/18 17:11 Pulse Ox 99 02/21/18 17:11 - Medical History PMH: Asthma, Kidney Stones, Chronic Kidney Disease Surgical History: No Surg Hx Family History: States: Unknown Family Hx - Social History Hx Alcohol Use: No Hx Substance Use: No - Immunization History Hx Tetanus Toxoid Vaccination: No Hx Influenza Vaccination: No Hx Pneumococcal Vaccination: No Review Of Systems Constitutional: Negative for: Fever, Chills Genitourinary: Positive for: Other (discomfort around nephrostomy tube site ). Negative for: Dysuria, Hematuria Physical Exam - Physical Exam Appears: Non-toxic, No Acute Distress Skin: Normal Color, Warm, Dry Head: Atraumatic, Normacephalic Eye(s): bilateral: Normal Inspection Oral Mucosa: Moist Neck: Supple Chest: Symmetrical, No Deformity, No Tenderness Cardiovascular: Rhythm Regular, No Murmur Respiratory: Normal Breath Sounds, No Rales, No Rhonchi, No Stridor Gastrointestinal/Abdominal: Other (left nephrostomy tube site is clean, dry and intact with no erythema, drainage or swelling ) Extremity: Normal ROM, Capillary Refill (less than 2 seconds ) Neurological/Psych: Oriented x3, Normal Speech, Normal Cognition ED Course And Treatment - Laboratory Results Result Diagrams: 02/21/18 18:13 02/21/18 18:13 O2 Sat by Pulse Oximetry: 99 (on RA) Pulse Ox Interpretation: Normal Medical Decision Making Medical Decision Making: Assessment: flank pain Plan: * bloodwork * urinalysis * CT A/P * Toradol IVP * reassess and disposition Progress: Case discussed with DR. Keon Kincaid, who advises to order CT A/P and labs. Bloodwork, urinalysis, CT A/P ordered and reviewed. Toradol IVP given. Disposition Discussed With : Glenn Callaway - Disposition Disposition Time: 19:00 Condition: FAIR Forms: [facility] (Indonesian) - Clinical Impression Clinical Impression: Left flank pain - Scribe Statement The provider has reviewed the documentation as recorded by the Scribe (Kandace Ferguson) Provider Attestation: All medical record entries made by the Scribe were at my direction and personally dictated by me. I have reviewed the chart and agree that the record accurately reflects my personal performance of the history, physical exam, medical decision making, and the department course for this patient. I have also personally directed, reviewed, and agree with the discharge instructions and disposition. Physician Patient Turnover Patient Signed Over To: Glenn Callaway Handoff Comments: pending labs, CT A/P, and disposition
[2018-02-21 18:43] LABS: SQUAMOUS EPITHIAL 28 /hpf (0-5); URINE BACTERIA OCC (<OCC); URINE BILIRUBIN NEGATIVE (NEGATIVE); URINE BLOOD 2+ (NEGATIVE); URINE CLARITY Hazy (Clear); URINE COLOR Yellow (YELLOW); URINE GLUCOSE (UA) NORMAL (Normal); URINE LEUKOCYTE ESTERASE 3+ Leu/uL (Negative); URINE PROTEIN 1+ mg/dL (NEGATIVE); URINE UROBILINOGEN NORMAL mg/dL (0.2-1.0)
[2018-02-21] MEDS ORDERED: Ciprofloxacin 400mg/200ml D5W 400 MG/200 ML BAG IVPB STA (19:04)
[2018-02-21] MEDS ORDERED: Ciprofloxacin 400mg/200ml D5W 400 MG/200 ML BAG IVPB ONE (19:20)
[2018-02-21 21:25] VITALS: O2SAT 100
[2018-02-21 22:46] VITALS: BP 122/60; PULSE 59; TEMP 98
--- NOTE | 2018-02-22 04:38 | CT ---
Date of service: 02/21/2018 PROCEDURE: CT Abdomen and Pelvis without intravenous contrast HISTORY: abd pain COMPARISON: Comparison is made with the previous study dated 12/28/2017 TECHNIQUE: Axial and reformatted coronal and sagittal CT images of the abdomen and pelvis were obtained without IV or oral contrast administration.. Contrast dose: 0 Radiation dose: Total exam DLP = 956.69 mGy-cm. This CT exam was performed using one or more of the following dose reduction techniques: Automated exposure control, adjustment of the mA and/or kV according to patient size, and/or use of iterative reconstruction technique. FINDINGS: LOWER THORAX: Unremarkable. LIVER: Unremarkable. No gross lesion or ductal dilatation. GALLBLADDER AND BILE DUCTS: The gallbladder is contracted. No CT evidence of cholecystitis or biliary obstruction. PANCREAS: Unremarkable. No gross lesion or ductal dilatation. SPLEEN: Unremarkable. ADRENALS: Unremarkable. No mass. KIDNEYS AND URETERS: The left kidney is small in size. Moderate to mildly severe left hydronephrosis and hydroureter up to calculus/calculi at the mid to lower left ureter. The patient is status post percutaneous nephrostomy catheter insertion which is seen at appropriate position. There is focal calcification versus nonobstructing renal calculus at the lower pole of the left kidney. The right kidney is grossly unremarkable. VASCULATURE: Unremarkable. No aortic aneurysm. No aortic atherosclerotic calcification or mural plaque present. BOWEL: Mild thickening of the distal esophagus is noted. No obstruction. No gross mural thickening. APPENDIX: Unremarkable. Normal appendix. PERITONEUM: Unremarkable. No free fluid. No free air. LYMPH NODES: Unremarkable. No enlarged lymph nodes. BLADDER: Unremarkable. REPRODUCTIVE: The uterus is slightly enlarged. BONES: No acute fracture. OTHER FINDINGS: None. IMPRESSION: The left nephrostomy tube is seen in place. Moderate to mildly severe left hydronephrosis and hydroureter up to mid to lower left ureter calculus/calculi. Nonobstructing calculus at the lower pole of the left kidney. Otherwise no evidence of acute pathology in the abdomen and pelvis. Preliminary report was submitted by [facility] Radiology contains concordant findings.
== END 2018-02-21 23:04 | disposition home or self-care (01) ==
LOC: C.ER 17:03
DX: N39.0 Urinary tract infection, site not specified (principal); N20.0 Calculus of kidney; R10.9 Unspecified abdominal pain
CPT/HCPCS: 74176; 80053; 81001; 85025; 87086; 96374; 96375; 99285; J0744; J1885

== ENCOUNTER 2018-03-06 11:26 | Day surgery (SDC) | payer MEDICAID ==
[2018-03-06] MEDS ORDERED: Propofol 10 mg/ml Inj (20 ML) ONE (12:31)
[2018-03-06] MEDS ORDERED: Midazolam 2 MG/2 ML VIAL ONE (12:31)
[2018-03-06] MEDS ORDERED: cefTRIAXone 1 gm 1 GM/100 ML BAG IVPB ONE (13:03)
[2018-03-06] MEDS ORDERED: Iohexol 240 (50 ml) ONE (13:03)
[2018-03-06] MEDS ORDERED: Oxycodone/Acetaminophen 5/325 mg Tab PO PRN (13:25)
[2018-03-06] MEDS ORDERED: Ciprofloxacin 400mg/200ml D5W 400 MG/200 ML BAG IVPB STA (13:36)
[2018-03-06] MEDS ORDERED: HYDROmorphone 0.5 mg/0.5 ml ISec ONE (14:16)
[2018-03-06 14:39] VITALS: O2SAT 100
[2018-03-06] MEDS ORDERED: HYDROmorphone 0.5 mg/0.5 ml ISec IVP PRN (14:48)
--- NOTE | 2018-03-06 15:35 | RAD ---
Date of service: 03/06/2018 PROCEDURE: Intraoperative Fluoroscopy. HISTORY: LEFT URETERAL CALCULI FINDINGS: Fluoroscopic assistance was provided for Total fluoroscopic time (continuous mode) utilized during the procedure 34.4 seconds. Dose report: DLP [id number] (mGy/m2) . Please refer to the operative report from ISAAC Bradshaw, , MD RACHEL.
[2018-03-06 16:38] VITALS: BP 112/71; PULSE 68; RESP 18; TEMP 98
--- NOTE | 2018-03-07 14:02 | RAD ---
Date of service: 03/06/2018 HISTORY: LEFT URETERAL CALCULI COMPARISON: Comparison made with prior abdominal radiographs 02/01/2018. comparison also made with CT scan of the abdomen pelvis 02/21/2018. FINDINGS: BOWEL: Normal. No obstruction. No free air. BONES: Normal. OTHER FINDINGS: There has been removal previously noted left ureteral stent.. Note that this stent was not present on CT scan abdomen pelvis 02/21/2018 Re demonstrated is in situ left percutaneous nephrostomy tube. IMPRESSION: In situ left percutaneous nephrostomy tube tube.. There has been removal previously noted left ureteral stent.
--- NOTE | 2018-03-12 13:49 | OP ---
PROCEDURE DATE: 03/06/2018 PREOPERATIVE DIAGNOSES: Urolithiasis with a heavy stone burden with hydronephrosis of suspected left kidney with a large left ureteral stenting. POSTOPERATIVE DIAGNOSES: Urolithiasis with a heavy stone burden with hydronephrosis of suspected left kidney with a large left ureteral stenting. PROCEDURE: Cystoscopy, retrograde pyelogram on the left, insertion of left double J stent and removal of a left nephrostomy tube. COMPLICATIONS: There were no complications. BLOOD LOSS: Less than 10 mL. INDICATIONS: See history and physical for further details. This is a very pleasant noncompliant lady . She has this gigantic stone and stone burdening, though would be getting a stenting end up nephrostomy tube being wind up. We are now removing that nephrostomy tube. collecting system. Secondary to stone disease. My main concern for me is about the idea that there is something going to be done she may need a segmental ureterectomy and a urinary anastomosis. This needs described evaluation, retrograde studies and other studies. In the interim, she is here today for a removal of a nephrostomy tube and see if we can get stenting low grade. . OPERATIVE FINDINGS: The only major significant finding is the hydronephrosis on the left kidney. See below plans in terms of renal scans and functioning and we are able to get a stent removed after . We are able to remove the nephrostomy urine and for this reason, we have given the patient many antibiotics. DESCRIPTION OF PROCEDURE: After obtaining informed consent, the patient was placed on the table. Routine monitor placed. Time-outs were called to confirm the patient and positioning. Now, introduced the cystoscope via urethra. The bladder was inspected with the scope. No obvious bladder lesions identified. We identified the orifice in the left retrograde pyelogram. Once we did a left retrograde pyelogram, we inserted a wire. The wire did not go straight and now where the stone is. So, we used the open-ended technique we tried gently with the bent in torque dialect there. Touring up towards the right angle and watching the wide rock, we did an open-ended fluoroscopy catheter all the way to the kidney. We did little more contrast and confirmed our positioning. Now we put a wire back in and inserted the double J stent. Then, once we had the access, we then removed the nephrostomy tube. When we did the open ended, above 15 mL. . We recommended keeping it open . Either way, we then planned to remove it without difficulty. We sent the culture segment for confirmation. At this point, the bladder . Determination good working of the Double J stent no complication. PLAN: Antibiotic to continue. Ruy Kincaid MD
== END 2018-03-06 16:40 | disposition home or self-care (01) ==
LOC: C.SDS 11:26
PROVIDERS: ATTEND Urology
DX: N13.30 Unspecified hydronephrosis (principal); N20.1 Calculus of ureter
CPT/HCPCS: 52005; 52332; 74018; 87070; 87181; C1725; C1758; C1769; J0744; J1170; Q9966

== ENCOUNTER 2018-03-22 10:22 | Day surgery (SDC) | payer MEDICAID ==
[2018-03-22] MEDS ORDERED: Iohexol 240 (50 ml) ONE (13:21)
[2018-03-22] MEDS ORDERED: cefTRIAXone 1 gm 1 GM/100 ML BAG IVPB ONE (13:21)
[2018-03-22] MEDS ORDERED: Lidocaine 2% Jelly (Uro-Jet) ONE (13:21)
[2018-03-22] MEDS ORDERED: Propofol 10 mg/ml Inj (20 ML) ONE (13:23)
[2018-03-22] MEDS ORDERED: Midazolam 2 MG/2 ML VIAL ONE (13:25)
[2018-03-22] MEDS ORDERED: Oxycodone/Acetaminophen 5/325 mg Tab PO PRN (14:06)
[2018-03-22] MEDS ORDERED: HYDROmorphone 0.5 mg/0.5 ml ISec IVP PRN (14:16)
[2018-03-22] MEDS: Ciprofloxacin 400mg/200ml D5W 400 MG/200 ML BAG IVPB SCH ×2 (14:41→15:15)
[2018-03-22 15:43] VITALS: RESP 18
[2018-03-22 16:27] VITALS: BP 102/67; PULSE 77; TEMP 97.5; O2SAT 99
--- NOTE | 2018-03-23 07:42 | HP ---
REASON FOR ADMISSION: Treatment of kidney stone. HISTORY OF PRESENT ILLNESS: The patient is a very pleasant, extremely noncompliant lady who has stone disease. At this point, her stones, I think, are embedded in her ureter, and I think she is going to need a segmental resection. We have discussed with the patient, and maybe she would get that robotically. We are going to discuss this further. Today, she is here for a cysto, possible ureteroscopy and laser lithotripsy. Previously, she had a nephrostomy tube, but we could not get a stent in leave the stones. I remember even now that was done at the [facility] as I am dictating my note. The patient's stones were so embedded. I had to actually go over a layer of tissue just to get down to the stone. The last time we tried removing the nephrostomy tube, she was all hydronephrotic. She is here now that I put a stent in and remove the nephrostomy tube. She is here for evaluation of followup hydronephrosis and then making recommendations and plan for the stone treatment. PAST MEDICAL HISTORY: As listed in the chart, otherwise unremarkable. PAST SURGICAL HISTORY: As listed in the chart, otherwise unremarkable. SOCIAL HISTORY: Unremarkable. She is currently not working; she is looking for a work. GYNECOLOGIC HISTORY: Noted, essentially otherwise unremarkable. As noted previously, but no other changes. MEDICATIONS: See chart. ALLERGIES: SEE CHART. PHYSICAL EXAMINATION GENERAL: A well-nourished female, in no apparent distress body habitus noted. LUNGS: Clear. HEART: Normal S1 and S2. ABDOMEN: Soft. No flank pain. no pelvic or rectal abscess. DIAGNOSES: Urolithiasis, hematuria, hydronephrosis on the left. PLAN: As follows: Today we are going to do much removal of the stone. We are going to reevaluate the ureter. See the addendum in the operative note and the addendum at the end of this note. We are going to treat as many stones as we see. I do think that the patient is going to end up requiring a segmental resection. We also need to evaluate the upper tract with renal scan to see the functioning, left versus right. The plan for today is: 1. Antibiotic prophylaxis. 2. Cystoscopy. 3. Ureteroscopy. 4. Laser lithotripsy. 5. Stent insertion. We will discuss further plan. ADDENDUM: Basically our operative finding reflects that the stone is embedded in the wall of the ureter. There were no complications. We did not extravasate any urine. We did try to even laser right into the wall. But I still think the patient has abnormality. We will need further addressing for the stone and for the ureter. As such, the patient may require segmental resection. The other issue to handle is to first see the kidney function before we do anything. So the plan for today is as follows: 1. Antibiotic prophylaxis. 2. Cystoscopy. 3. Ureteroscopy. The plan is for outpatient followup. She will need a renal scan. Ruy Kincaid MD
--- NOTE | 2018-03-23 07:42 | OP ---
PROCEDURE DATE: 03/22/2018 UROLOGY OPERATIVE NOTE PREOPERATIVE DIAGNOSES: Urolithiasis, hematuria, hydronephrosis, severe left hydronephrosis, and possible decreased function of left kidney. POSTOPERATIVE DIAGNOSES: Urolithiasis, hematuria, hydronephrosis, severe left hydronephrosis, and possible decreased function of left kidney. PROCEDURES: Exam under anesthesia, cystoscopy, removal of double-J stent, left ureteroscopy, laser lithotripsy of left stone, left retrograde pyelogram, insertion of left double-J stent. COMPLICATIONS: No complications. FINDINGS: 1. Bladder mucosa is within normal limits. 2. Ureteral orifices are within normal limits. 3. In the distal ureter, there are stones. There is extremely tremendous amount of inflammatory tissue, looks like there is growth around the stents. It does not look like to be a malignancy. No biopsy is taken as of today, but it all looks inflammatory, but there is a stone embedded underneath the tissue. In the kidney, everything looks within normal limits. The hydronephrosis is definitely drastically decreased. double-J stent in place. I do want to mention the operative findings. We lasered the stone. The procedures were exam under anesthesia, cystoscopy, removal of left double-J stent, left ureteroscopy, laser lithotripsy of the stone, left retrograde pyelogram, insertion of left double-J stent. FINDINGS: There were stones embedded in the wall. We were able to actually go right through the tissue. We could see the stone and we lasered more, more and more. I do not think she is completely stone free even at the termination. I do not want to make any holes in the ureter. I do think that eventually she will need a resection. After we lasered right in the wall, we took multiple pictures. Many many pictures were taken and saved for this patient. Then, I even did retrograde pyelogram. There is no extravasation. Even just to confirm everything, I put a second wire up and went all the way up and down again the ureter and the kidney. There is no extravasation, but I do think that the stones were underneath the inflammatory tissue. Multiple pictures were taken and saved. We have to discuss the options. DESCRIPTION OF PROCEDURE: After obtaining informed consent, the patient was placed on the table. Routine monitors were placed. Time-out was called to confirm the patient and positioning. We introduced the cystoscope via urethra. The ureteral orifice was identified. A wire was passed up to the kidney without difficulty. Wires were placed when adjacent to the safety wire. The safety wire was in place when adjacent to it with the ureteroscope. We identified some stones. We did see very markedly inflammatory tissue as well that was leading to the lumen. We just lasered when we had seen the stones. As soon as we did that we did see the yellow stones. Multiple pictures were taken and saved. We then went and lasered as much as we could. Once we did this, we put a second wire which went back up to the kidney. I did a contrast study, so I can see if there is any extravasation just to confirm. There is not extravasation. We did all this and also did the retrograde to see if I could see the inflammatory. They liked little lesions that are dipping in, but the ureter itself seems pretty relatively smooth on the retrograde pyelogram that was pumped through the ureteroscope. I know that is not the ideal way. I just did measure it. At this point, we have a wire up in the kidney. I put a second wire up as mentioned. As two wires up in the kidney, I used a second wire to make sure that unable to put a double-J stent in to confirm the positioning. The bladder was emptied and cystoscope removed. The patient tolerated without complication. Films were submitted to the radiologist. Further plans to follow. From a urology standpoint, we will discuss the patient whether or not a segment of resection is appropriate or not. Further plans will follow. Ruy Kincaid MD
== END 2018-03-22 16:20 | disposition home or self-care (01) ==
LOC: C.SDS 10:22
PROVIDERS: ATTEND Urology
DX: N13.2 Hydronephrosis with renal and ureteral calculous obstruction (principal); Z91.19 Patient's noncompliance with other medical treatment and regimen
CPT/HCPCS: 52356; J0696; J0744; J1170; J1580; Q9966

== ENCOUNTER 2018-04-10 11:51 | Day surgery (SDC) | payer MEDICAID ==
--- NOTE | 2018-04-10 13:09 | C.PDOC ---
History Of Present Illness 32 year old female presents to the ED for evaluation of left flank pain. Patient states she underwent urinary catheter placement by Dr. Kincaid two weeks ago, and her pain has not been improving. Patient was advised by Dr. Kincaid to report to the ED for further evaluation. Patient denies fever, chills. Chief Complaint (Nursing): Abdominal Pain History Per: Patient History/Exam Limitations: no limitations Onset/Duration Of Symptoms: Other (two weeks ) Current Symptoms Are (Timing): Still Present Radiation Of Pain To:: Flank (left) Quality Of Discomfort: "Pain" Additional History Per: Patient Past Medical History Reviewed: Historical Data, Nursing Documentation, Vital Signs Vital Signs: Last Vital Signs Temp 8.3 F L 04/10/18 12:21 Pulse 644 H 04/10/18 12:21 Resp 20 04/10/18 12:21 BP 105/65 04/10/18 12:21 Pulse Ox 99 04/10/18 12:21 - Medical History PMH: Asthma, Kidney Stones, Chronic Kidney Disease Surgical History: No Surg Hx Family History: States: Unknown Family Hx - Social History Hx Alcohol Use: No Hx Substance Use: No - Immunization History Hx Tetanus Toxoid Vaccination: No Hx Influenza Vaccination: No Hx Pneumococcal Vaccination: No Review Of Systems Constitutional: Negative for: Fever, Chills Musculoskeletal: Positive for: Other (left flank pain ) Physical Exam - Physical Exam Appears: Non-toxic, No Acute Distress, Other (uncomfortable ) Skin: Normal Color, Warm, Dry Head: Atraumatic, Normacephalic Eye(s): bilateral: Normal Inspection Oral Mucosa: Moist Neck: Supple Chest: Symmetrical, No Deformity, No Tenderness Cardiovascular: Rhythm Regular, No Murmur Respiratory: Normal Breath Sounds, No Rales, No Rhonchi, No Wheezing Back: CVA Tenderness (left-sided ) Extremity: Normal ROM, Capillary Refill (less than 2 seconds ) Neurological/Psych: Oriented x3, Normal Speech, Normal Cognition ED Course And Treatment O2 Sat by Pulse Oximetry: 99 (on RA ) Pulse Ox Interpretation: Normal Progress Note: Bloodwork and urinalysis ordered and reviewed. Morphine IVP andIV Fluids given. Case discussed with Dr. Kincaid, who accepts the patient to the OR. Disposition - Disposition Disposition: HOSPITALIZED Disposition Time: 13:09 Condition: STABLE - Clinical Impression Clinical Impression: Ureterolithiasis - PA / ENVIRONMENTAL PLANNER / Resident Statement MD/DO has reviewed & agrees with the documentation as recorded. - Scribe Statement The provider has reviewed the documentation as recorded by the Scribe (Kandace Ferguson) All medical record entries made by the Scribe were at my direction and personally dictated by me. I have reviewed the chart and agree that the record accurately reflects my personal performance of the history, physical exam, medical decision making, and the department course for this patient. I have also personally directed, reviewed, and agree with the discharge instructions and disposition. Decision To Admit - Pt Status Changed To: Hospital Disposition Of: SDS- Endo,OR,Cath,IR - . Bed Request Type: Same Day Surgery Admitting Physician: Ryan Kincaid Patient Diagnosis: Ureterolithiasis
[2018-04-10] MEDS ORDERED: Sodium Chloride 0.9% 1,000 ML IV STA (13:29)
[2018-04-10] MEDS ORDERED: Sodium Chloride 0.9% 1,000 ML ONE (13:30)
[2018-04-10] MEDS ORDERED: Morphine 4 MG/ML VIAL ONE (13:30)
[2018-04-10] MEDS ORDERED: Propofol 10 mg/ml Inj (20 ML) ONE (15:22)
[2018-04-10] MEDS ORDERED: Midazolam 2 MG/2 ML VIAL ONE (15:22)
[2018-04-10] MEDS ORDERED: Lidocaine Hydrochloride 5 ML INJ ONE (15:25)
[2018-04-10] MEDS ORDERED: Oxycodone/Acetaminophen 5/325 mg Tab PO PRN (15:25)
[2018-04-10] MEDS ORDERED: Gentamicin 80 mg in 0.9% NS 80 MG/100 ML BAG IVPB SCH (15:30)
[2018-04-10] MEDS ORDERED: HYDROmorphone 0.5 mg/0.5 ml ISec IVP PRN (15:38)
[2018-04-10] MEDS ORDERED: cefTRIAXone 1 gm 1 GM/100 ML BAG IVPB ONE (15:41)
[2018-04-10] MEDS ORDERED: Iohexol 240 (50 ml) ONE (15:41)
[2018-04-10 17:11] VITALS: TEMP 97.8
[2018-04-10 17:39] VITALS: PULSE 56; RESP 16
[2018-04-10 18:10] VITALS: BP 122/60
[2018-04-10 18:53] VITALS: O2SAT 99
--- NOTE | 2018-04-11 09:31 | RAD ---
Date of service: 04/10/2018 PROCEDURE: Intraoperative Fluoroscopy. HISTORY: LEFT URETERAL STONE FINDINGS: Fluoroscopic assistance was provided. Fluoroscopy time = 32.8 sec. Radiation dose = 1.32 mGy-cm. Please refer to the operative report from ISAAC Bradshaw, , MD RACHEL.
--- NOTE | 2018-04-11 14:51 | RAD ---
Date of service: 04/10/2018 HISTORY: LEFT URETERAL STONE COMPARISON: Abdomen KUB 03/06/2018. FINDINGS: BOWEL: Patient now identified converted from left nephrostomy to left double-J ureteral stent with mild left hydronephrosis appreciated on opacification of the left pelvocaliceal system with iodinated contrast material. No definite suspicious ureteral dilatation with the urinary bladder collapse. Question small calcification lateral to proximal segment of left double-J ureteral stent and proximal left ureter. Left double-J ureteral stent reportedly exchanged. Final image demonstrates adequate positioning. BONES: Normal. OTHER FINDINGS: None. IMPRESSION: Adequate positioning of double-J left ureteral stent with mild left hydronephrosis appreciated.
--- NOTE | 2018-05-03 09:11 | OP ---
PROCEDURE DATE: 04/10/2018 PREOPERATIVE DIAGNOSES: Hydronephrosis on the left, left ureteral stone, abnormal left mid to distal ureter. Recurrent stone disease, hydronephrosis, hematuria. POSTOPERATIVE DIAGNOSES: .Hydronephrosis on the left, left ureteral stone, abnormal left mid to distal ureter. Recurrent stone disease, hydronephrosis, hematuria and there are some new stones today (see operative findings. The stent is removed and inserted a new one). PROCEDURE: Cystoscopy, removal of double-J stent, left ureteroscopy, laser lithotripsy, and insertion of left double-J stent. COMPLICATIONS: There were no complications. INDICATIONS FOR THE PROCEDURE: See history and physical for further details. The patient is a very pleasant lady, not perfectly compliant, but pleasant about the matter with her left ureteral abnormalities and stone disease, is here now for the above procedure. OPERATIVE FINDINGS: 1. The bladder mucosa within normal limits. 2. Ureteral wall showed she has had some edema around it. 3. Within the ureter itself, there is a lot of edema. See the pictures. I gave the patient a copy of the picture postop. There was tremendous amount of edema within the entire ureter. 4. I do not see any specific lesions that are worth biopsying. 5. There is also the part where it feels like almost there could be stone in the wall. 6. There are some stone pieces that we lasered today in the same segment just around the level of the iliac vessels. See the plan listed below. We may repeat imaging to see if there is anything in that wall. Although the end is I think that there are some abnormalities. Not concerned for cancer per se, just concerned that it is just too inflamed and scarred to ever be normal. No other abnormalities appreciated and the patient tolerated the above. DESCRIPTION OF PROCEDURE: After obtaining informed consent, the patient was placed on the table. Routine monitors were placed. Timeout was called to confirm the patient and positioning, etc. We also provided patient with antibiotic prophylaxis. We introduced the cystoscope via urethra. The bladder was inspected. There were no bladder abnormalities. The left ureteral orifice was identified, removed the old double-J stent for the wire up to the kidney. It is actually fairly easy. The stent was not overly encrusted. See previous notes . At this point, we went adjacent to the wire, using the wire as a safety wire, we identified the ureter abnormalities. See the pictures that included in the chart. But we are able to negotiate to pass any of this inflammation in the light. We got up to the stone area, and at that area, we did laser to some of the stones that were present. See the pictures, but along the wall, it looks more, maybe towards the medial side more, it looks like there is just bumpiness as if maybe there is a stone embedded directly in the wall, but the mucosa of the stone is covering it. (Although this is most unusual, originally when we met the patient, when we literally had to orlin a hole through the stone, it was definitely attached to the wall in an interesting way). At that time, see those previous notes faxed from the [facility], at that time, we could not get through the first time despite major efforts, and despite that we are needing a contrast in, so the patient had a percutaneous nephrostomy. Once we had the freedom of having a percutaneous nephrostomy tube in and knowing that patient will be okay, we then actually worked on the wall knowing that we might perforate. I had explained to the patient at that time that if we did, she might even need open surgery. But at that time, we then were able to make a hole through without transecting the ureter or without even making a perforation (see those pictures at that time), when we injected the contrast, there was no extravasation, so we are able to space central through the stone and then we were able to get a wire and a stent and then we came back and worked on it. So at this point, the wall looked thick as if there may be some stone material behind it. It is very difficult to say, but today, I do not want to, even though I do have a safety wire and I do not want to try to work on the wall in the same way at this point because I am more and more convinced that, that segment of the ureter is abnormal. Therefore, it is a different story. Keep working carefully and meticulously. I do not see any major abnormalities at all up to the renal pelvis. No other stones are appreciated. At this point, the patient discussed about the idea of taking out the stent. We previously gave a stent holiday. And I feel uncomfortable with this now because the patient developed hydronephrosis after about a month and I am worried about there is already known kidney damage and I do not want to do any further damage. So I put her stent back in. The bladder was empty. The scope was removed. The patient tolerated without complication. ADDENDUM: My next plan and best outlook for the patient is a second opinion and the possibility for a ureteral resection. What I need to do is re-image the patient with a CT scan to see if there are any stones in the wall. Also need to repeat imaging with nuclear medicine to see that the kidney is definitely worth saving. Again, previously it is a fairly atrophic kidney. So we will see atrophy on the CAT scan. We will also see the actual renal function with the renal scan, just working on getting the insurance approval and location, etc. Ruy Kincaid MD
--- NOTE | 2018-05-03 18:52 | HP ---
UROLOGY EMERGENCY ADMISSION REASON FOR ADMISSION: Severe stent pain. HISTORY OF PRESENT ILLNESS: Ms. Mayelin Leone is a very pleasant 32-year-old lady, who I know quite well. I originally met her at the [facility] where she had a stone of such large size that I was not able to place a stent. She ended up needing a nephrostomy tube. She has a poorly functioning left kidney, I do not know the exact numbers and will need to check this. In the interim, since her initial presentation, she is basically extremely pleasant about the whole matter, but extremely difficult for compliance, it is difficult for her to get around for various reasons. She is reluctant to take narcotics, only when the pain gets too bad. In the meantime, she has been walking around with the stent. I have discussed various options with the patient. My recommendation I think at this point has generally been to get a second opinion for other options, but I think she needs a segmental resection of the ureter. I do also want to mention though I wanted to make sure that the kidney function is reasonable, above the 10% to 20% required that we usually think of in terms of functioning and keeping the patient off of dialysis in the event if something happens to the right kidney. I discussed this with her at length. Either way now she is presenting to the emergency room because she is having stent discomfort and pain and we will bring her in as an emergency for a cysto stent change. I considered the possibilities of stent removal, but I am fearful for recurrence of scar tissue. I have given her an adequate chance where we took out the stent altogether and we watched for a little while and then she developed hydronephrosis again. She had a little "stent holiday" where we gave a few weeks of no stent. She did have some discomfort but not even severe, so we could not even rely on the symptom of hydronephrosis. Then, we placed the stent back in but now I am reluctant to give another stent holiday even if she is stone free today. She is here today as an emergency admission to exchange the stent and then we are going to insist that she seek a second opinion. Some of the issues also for the patient is mobility and again even when I initially met her in the [facility], she insisted that I offer to bring her back there. Now, she is in the [facility] Emergency [facility]. She has improved a little bit with the mobility, but certainly my initial recommendation was to consider going to either a medical school or to [facility] again depending on her insurance issues but she said neither place could she get to. PAST MEDICAL AND SURGICAL HISTORY: As listed on the chart. Nothing else has changed in the interim, see the emergency room note as well. REVIEW OF SYSTEMS: As listed above. SOCIAL HISTORY: She had some children, they live with their father, but she around this area. She sometimes I think has been in the state [facility] or [place]. PHYSICAL EXAMINATION: GENERAL: A well-nourished female, in no apparent distress. VITAL SIGNS: Noted within normal limits. LUNGS: Clear. HEART: Normal S1, S2. ABDOMEN: Overall soft. PELVIS AND RECTAL: No pelvic or rectal masses. LABORATORY DATA: See chart. DIAGNOSES: Severe stent pain, hematuria, stone disease, left hydronephrosis, poorly functioning left kidney. A very pleasant 32-year-old lady with some difficulty with compliance and the like. Today, I am just going to change her stent. I am also going to possibly do a ureteroscope. I have discussed this with the patient and if I see a stone, laser it, stone fragment forming, but most likely the big thing is what she needed a new stent but she needs to get a second opinion. We need to reevaluate with a renal scan. I am trying to get the patient, sometimes it is difficult with the insurance and getting approval and authorization likely. She has a poorly functioning left kidney that we know from her original evaluation at the [facility]. Perhaps, there is some improvement now that she has proper drainage and it has been coming in on a more regular basis. Today's plan if there is an emergency, we are going to change the stent. The issue is the patient is coming to the emergency room. I am not going to do it as an emergency because she has difficulty with her transportation and arrangements and I had severe phone calls back and forth with the patient and she is not able to make all her appointments, so bringing her in as an emergency to the OR is able to accommodate the schedule. See the operative note dictated separately. Ruy Kincaid MD [facility] # [id number]
== END 2018-04-10 18:52 | disposition home or self-care (01) ==
LOC: C.ER 11:51 → C.SDS 13:08
PROVIDERS: ATTEND Urology
DX: N13.2 Hydronephrosis with renal and ureteral calculous obstruction (principal); J45.909 Unspecified asthma, uncomplicated; N18.9 Chronic kidney disease, unspecified; Z87.442 Personal history of urinary calculi
CPT/HCPCS: 52356; 74019; 84703; 96361; 96374; 99285; C1725; C1769; J0696; J1170; J1580; J2270; J2765; J7030; Q9966

== ENCOUNTER 2018-05-23 11:46 | Inpatient (IN) | payer MEDICAID ==
[2018-05-23 12:01] VITALS: BMI 37.0
--- NOTE | 2018-05-23 12:44 | C.PDOC ---
History Of Present Illness 32 y/o female with hx of kidney stones and asthma presents to the ED for left- sided lower back pain for the last 3 days. Pain radiates around to her lower abdomen and into left groin. Patient notes this pain is reminiscent of prior k idney stones. She follows with Dr. Ryan Kincaid, and currently has a ureteral stent on the left. She originally had a large kidney stone approx 6 months ago and had a nephrostomy tube. In April she had the left ureteral stent placed. Pt has a robotic surgery scheduled in the beginning of june to repair her left ureter but presents today for worsening pain. She also reports frequent urgency to urinate, but each time yields only a few drops of urine. She called Dr. Kincaid today, who advised patient to come in for evaluation. Patient otherwise denies any dysuria, hematuria, nausea, vomiting, diarrhea, chest pain, SOB, fever, chills, or vaginal bleeding or discharge. Time Seen by Provider: 05/23/18 12:35 Chief Complaint (Nursing): Abdominal Pain History Per: Patient History/Exam Limitations: no limitations Onset/Duration Of Symptoms: Days (3) Current Symptoms Are (Timing): Still Present Past Medical History Reviewed: Historical Data, Nursing Documentation, Vital Signs Vital Signs: Last Vital Signs Temp 98.2 F 05/23/18 12:00 Pulse 98 H 05/23/18 12:00 Resp 18 05/23/18 12:00 BP 103/71 05/23/18 12:00 Pulse Ox 98 05/23/18 12:00 - Medical History PMH: Asthma, Kidney Stones, Chronic Kidney Disease Other Surgeries: Left ureteral stent placement Family History: States: Unknown Family Hx - Social History Hx Alcohol Use: Yes Hx Substance Use: No - Immunization History Hx Tetanus Toxoid Vaccination: No Hx Influenza Vaccination: Yes Hx Pneumococcal Vaccination: No Review Of Systems Except As Marked, All Systems Reviewed And Found Negative. Constitutional: Negative for: Fever, Chills Eyes: Negative for: Vision Change Cardiovascular: Negative for: Chest Pain, Palpitations, Light Headedness Respiratory: Negative for: Cough, Shortness of Breath Gastrointestinal: Positive for: Abdominal Pain (left lower). Negative for: Nausea, Vomiting, Diarrhea Genitourinary: Positive for: Frequency (with small urinary volume), Pelvic Pain (left groin and vaginal pain). Negative for: Dysuria, Hematuria, Vaginal Discharge, Vaginal Bleeding Musculoskeletal: Positive for: Back Pain (left-sided). Negative for: Neck Pain Skin: Negative for: Rash Neurological: Negative for: Weakness, Numbness, Headache, Dizziness Physical Exam - Physical Exam Appears: Non-toxic, No Acute Distress Skin: Warm, Dry, No Rash Head: Atraumatic, Normacephalic Eye(s): bilateral: Normal Inspection, PERRL, EOMI Oral Mucosa: Moist Neck: Normal ROM, Supple Chest: Symmetrical Cardiovascular: Rhythm Regular, No Murmur Respiratory: Normal Breath Sounds, No Accessory Muscle Use Gastrointestinal/Abdominal: Bowel Sounds (normal), Soft, Tenderness (to the LLQ), No Mass, No Distention, No Guarding Back: CVA Tenderness (Left-sided), No Vertebral Tenderness, No Paraspinal Tenderness Extremity: Normal ROM, Capillary Refill (<2s) Extremity: Bilateral: Atraumatic, Normal Color And Temperature, Normal ROM Pulses: Left Radial: Normal, Right Radial: Normal Neurological/Psych: Oriented x3, Normal Speech, Normal Cranial Nerves, Normal Motor, Normal Sensation Gait: Steady ED Course And Treatment - Laboratory Results Result Diagrams: 05/23/18 12:46 05/23/18 12:46 Urine POC: Negative O2 Sat by Pulse Oximetry: 98 (RA) Pulse Ox Interpretation: Normal - CT Scan/US Pelvic US Other Rad Studies (CT/US): Read By Radiologist, Radiology Report Reviewed CT/US Interpretation: Accession No. : [id number]. Patient Name / ID : SHEN ADAM / [id number]. Exam Date : 05/23/2018 15:18:49 ( Approved ). Study Comment : Sex / Age : F / 32Y. Creator : Susie Noriega. Dictator : Roxi Luna MD. Costume Draper : Marketing Clerk : Roxi Luna MD. Approver2 : Report Date : 05/23/2018 15:57:34. My Comment : . Date of service: 05/23/2018. HISTORY: vaginal pain, lower abdominal pain. COMPARISON: None available. TECHNIQUE: Real-time transabdominal pelvic ultrasound was performed. In addition a transvaginal pelvic ultrasound was necessary to better depict pelvic anatomy. FINDINGS: UTERUS: Measures 9.6 x 4.7 x 7.3 cm. Anteverted. Tiny cysts measuring maximally 0.3 x 0.2 x 0.2 cm at the endometrial/myometrial junction. Small echogenic foci at the measuring up to 1 cm, likely small endometrial calcifications. ENDOMETRIUM: Measures 6 mm in diameter. CERVIX: Nabothian c ysts. RIGHT OVARY: Measures 3.4 x 2.0 x 2.9 cm. Blood flow is demonstrated. Two somewhat heterogeneous irregular right ovarian cysts measuring maximally 1.3 cm and 1.2 cm, possibly ruptured/hemorrhagic cysts. LEFT OVARY: Measures 2.6 x 1.3 x 2.3 cm. Blood flow is demonstrated. FREE FLUID: Small free fluid noted. OTHER FINDINGS: None. IMPRESSION: Tiny cysts measuring maximally 0.3 x 0.2 x 0.2 cm at the endometrial/myometrial junction. Small echogenic foci at the myometrium measuring up to 1 cm, likely small endometrial calcifications. Two somewhat heterogeneous irregular right ovarian cysts measuring maximally 1.3 cm and 1.2 cm, possibly ruptured/hemorrhagic cysts. Six week ultrasound follow-up may be considered if indicated. Abd/Pelvic CT Other Rad Studies (CT/US): Read By Radiologist, Radiology Report Reviewed CT/US Interpretation: Accession No. : [id number]. Patient Name / ID : SHEN ADAM / [id number]. Exam Date : 05/23/2018 15:09:57 ( Approved ). Study Comment : Sex / Age : F / 32Y. Creator : Mari May. Dictator : Roxi Luna MD. Costume Draper : Marketing Clerk : Roxi Luna MD. Approver2 : Report Date : 05/23/2018 15:33:40. My Comment : . PROCEDURE: CT Abdomen and Pelvis without Oral or IV contrast. HISTORY: left uretal stent, LLQ pain. COMPARISON: CT abdomen pelvis performed 02/21/18. TECHNIQUE: Contiguous axial images of the abdomen and pelvis. No oral or IV contrast administered. Coronal and Sagittal reformats generated and reviewed. Radiation dose: Total exam DLP = 1040.39 mGy-cm. This CT exam was performed using one or more of the following dose reduction techniques: Automated exposure control, adjustment of the mA and/or kV according to patient size, and/or use of iterative reconstruction technique. FINDINGS: There is limited evaluation of the solid organs without the administration of IV contrast. LOWER THORAX: No visible consolidation, pleural effusion, or pneumothorax. LIVER: Unremarkable unenhanced appearance. GALLBLADDER AND BILE DUCTS: Unremarkable unenhanced appearance. PANCREAS: Unremarkable unenhanced appearance. SPLEEN: Unremarkable unenhanced appearance. ADRENALS: Unremarkable unenhanced appearance. KIDNEYS AND URETERS: Left ureteral stent. 3 mm ureteral calculus identified along the medial aspect of the mid to distal ureteral stent (series 3, image 111). 3 mm left midpole and 6 mm left lower pole nonobstructing calculi. Atrophic left kidney. No hydronephrosis bilaterally. BLADDER: Under distended urinary bladder. REPRODUCTIVE: Uterus is present. APPENDIX: The appendix appears within normal limits of caliber. No secondary signs of acute appendicitis. BOWEL: The stomach is nondistended. Lack of oral contrast limits evaluation for bowel pathology. The bowel loops appear within normal limits of caliber w ithout evidence of intestinal obstruction. PERITONEUM: No significant free fluid. No definite free air. LYMPH NODES: No bulky lymphadenopathy identified. VASCULATURE: Minimal aortic atherosclerotic calcification. No aortic aneurysm. BONES: No acute osseous abnormality is detected. OTHER FINDINGS: None. IMPRESSION: Left ureteral stent. 3 mm ureteral calculus identified along the medial aspect of the mid to distal ureteral stent. 3 mm left midpole and 6 mm left lower pole nonobstructing calculi. Atrophic left kidney. No hydronephrosis. Medical Decision Making Medical Decision Making: Impression: Left-sided back pain radiating to left abdomen/groin Initial Plan: - CMP - Lipase - UDS - CMP - PTT/PT - UA - Urine culture - Chest x-ray - Transvaginal/Pelvic US 13:[address] Kincaid, recommends obtaining noncontrast CT Abdomen/Pelvis and Nuclear Medicine Renal Scan. He states patient has hx of obstructed kidney and stones in the left ureter, with stent in place on the left side. Patient was scheduled for robotic repair of the ureter on 06/04/18, but Dr. Kincaid wants patient admitted for possible stent change. Imaging reviewed and discussed with patient. IV fluids infusing. Still pending results for nuclear medicine scan. 17:00 Paged medicine on-call, Dr. David Wayne, to review case. 17:40 Still awaiting call back. Second page placed to Dr. Wayne answering service. 17:50 Received call back from Dr. Wayne, case reviewed, will admit patient to medical service. She refers antibiotic to Dr. Kincaid. 18:[address] Kincaid, who recommends IV Rocephin. Patient is to be kept NPO after midnight. 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 - Scribe Statement The provider has reviewed the documentation as recorded by the Isaac Louise All medical record entries made by the Naomiibe were at my direction and personally dictated by me. I have reviewed the chart and agree that the record accurately reflects my personal performance of the history, physical exam, medical decision making, and the department course for this patient. I have also personally directed, reviewed, and agree with the discharge instructions and di sposition.
[2018-05-23 12:54] LABS: BASO % 0.4 % (0.0-2.0); EOS % 0.4 % (0.0-4.0); HEMOGLOBIN 13.4 g/dL (11.0-16.0); LYMPH # 1.1 K/uL (1.0-4.3); LYMPH % 23.1 % (20.0-40.0); MEAN CORPUSCULAR HEMOGLOBIN 28.5 pg (27.0-31.0); MEAN CORPUSCULAR HGB CONC 34.1 g/dL (33.0-37.0); MEAN PLATELET VOLUME 7.9 fL (7.2-11.7); MONO # 0.7 K/uL (0.0-0.8); MONO % 14.1 % (0.0-10.0); NEUT # 3.1 K/uL (1.8-7.0); RBC 4.7 Mil/uL (3.80-5.20); WHITE BLOOD COUNT 4.9 K/uL (4.8-10.8)
[2018-05-23 13:05] LABS: MEAN CELL VOLUME 83.6 fL (81.0-99.0)
[2018-05-23 13:06] LABS: INR 1.2
[2018-05-23 13:07] LABS: ALB/GLOB RATIO 1.5 (1.0-2.1); ALBUMIN 4.9 g/dL (3.5-5.0); ALT/SGPT 10 U/L (9-52); AST/SGOT 25 U/L (14-36); BLOOD UREA NITROGEN 15 mg/dL (7-17); CALCIUM 9.6 mg/dl (8.6-10.4); GFR NON-AFRICAN AMERICAN > 60; LIPASE 217 U/L (23-300)
[2018-05-23 13:22] LABS: SQUAMOUS EPITHIAL 33 /hpf (0-5); URINE BACTERIA OCC (<OCC); URINE BILIRUBIN NEGATIVE (NEGATIVE); URINE BLOOD 1+ (NEGATIVE); URINE CLARITY Hazy (Clear); URINE COLOR Amber (YELLOW); URINE GLUCOSE (UA) NORMAL (Normal); URINE LEUKOCYTE ESTERASE 3+ Leu/uL (Negative); URINE PROTEIN 2+ mg/dL (NEGATIVE); URINE UROBILINOGEN NORMAL mg/dL (0.2-1.0)
[2018-05-23 13:24] LABS: BARBITURATES, UR NEGATIVE (NEGATIVE); BENZODIAZEPINES, UR NEGATIVE (NEGATIVE); OPIATES, UR NEGATIVE (NEGATIVE); PHENCYCLIDINE, UR NEGATIVE (NEGATIVE)
--- NOTE | 2018-05-23 13:28 | RAD ---
Date of service: 05/23/2018 PROCEDURE: CHEST RADIOGRAPH, 1 VIEW HISTORY: Abdominal pain COMPARISON: None available. FINDINGS: LUNGS: The lungs are well inflated. There is discoid atelectasis in the right mid lung. PLEURA: No pneumothorax or pleural effusion. CARDIOVASCULAR: The heart is normal in size. No aortic atherosclerotic calcifications present. OSSEOUS STRUCTURES: Within normal limits for the patient's age. VISUALIZED UPPER ABDOMEN: Normal. OTHER FINDINGS: None. IMPRESSION: Discoid atelectasis in the right mid lung. No lobar pneumonia.
--- NOTE | 2018-05-23 16:15 | CT ---
PROCEDURE: CT Abdomen and Pelvis without Oral or IV contrast. HISTORY: left uretal stent, LLQ pain COMPARISON: CT abdomen pelvis performed 02/21/18 TECHNIQUE: Contiguous axial images of the abdomen and pelvis. No oral or IV contrast administered. Coronal and Sagittal reformats generated and reviewed. Radiation dose: Total exam DLP = 1040.39 mGy-cm. This CT exam was performed using one or more of the following dose reduction techniques: Automated exposure control, adjustment of the mA and/or kV according to patient size, and/or use of iterative reconstruction technique. FINDINGS: There is limited evaluation of the solid organs without the administration of IV contrast. LOWER THORAX: No visible consolidation, pleural effusion, or pneumothorax. LIVER: Unremarkable unenhanced appearance. GALLBLADDER AND BILE DUCTS: Unremarkable unenhanced appearance. PANCREAS: Unremarkable unenhanced appearance. SPLEEN: Unremarkable unenhanced appearance. ADRENALS: Unremarkable unenhanced appearance. KIDNEYS AND URETERS: Left ureteral stent. 3 mm ureteral calculus identified along the medial aspect of the mid to distal ureteral stent (series 3, image 111). 3 mm left midpole and 6 mm left lower pole nonobstructing calculi. Atrophic left kidney. No hydronephrosis bilaterally. BLADDER: Under distended urinary bladder. REPRODUCTIVE: Uterus is present. APPENDIX: The appendix appears within normal limits of caliber. No secondary signs of acute appendicitis. BOWEL: The stomach is nondistended. Lack of oral contrast limits evaluation for bowel pathology. The bowel loops appear within normal limits of caliber without evidence of intestinal obstruction. PERITONEUM: No significant free fluid. No definite free air. LYMPH NODES: No bulky lymphadenopathy identified. VASCULATURE: Minimal aortic atherosclerotic calcification. No aortic aneurysm. BONES: No acute osseous abnormality is detected. OTHER FINDINGS: None. IMPRESSION: Left ureteral stent. 3 mm ureteral calculus identified along the medial aspect of the mid to distal ureteral stent. 3 mm left midpole and 6 mm left lower pole nonobstructing calculi. Atrophic left kidney. No hydronephrosis.
--- NOTE | 2018-05-23 16:36 | US ---
Date of service: 05/23/2018 HISTORY: vaginal pain, lower abdominal pain COMPARISON: None available. TECHNIQUE: Real-time transabdominal pelvic ultrasound was performed. In addition a transvaginal pelvic ultrasound was necessary to better depict pelvic anatomy. FINDINGS: UTERUS: Measures 9.6 x 4.7 x 7.3 cm. Anteverted. Tiny cysts measuring maximally 0.3 x 0.2 x 0.2 cm at the endometrial/myometrial junction. Small echogenic foci at the measuring up to 1 cm, likely small endometrial calcifications. ENDOMETRIUM: Measures 6 mm in diameter. CERVIX: Nabothian cysts. RIGHT OVARY: Measures 3.4 x 2.0 x 2.9 cm. Blood flow is demonstrated. Two somewhat heterogeneous irregular right ovarian cysts measuring maximally 1.3 cm and 1.2 cm, possibly ruptured/hemorrhagic cysts. LEFT OVARY: Measures 2.6 x 1.3 x 2.3 cm. Blood flow is demonstrated. FREE FLUID: Small free fluid noted. OTHER FINDINGS: None. IMPRESSION: Tiny cysts measuring maximally 0.3 x 0.2 x 0.2 cm at the endometrial/myometrial junction. Small echogenic foci at the myometrium measuring up to 1 cm, likely small endometrial calcifications. Two somewhat heterogeneous irregular right ovarian cysts measuring maximally 1.3 cm and 1.2 cm, possibly ruptured/hemorrhagic cysts. Six week ultrasound follow-up may be considered if indicated.
[2018-05-23] MEDS: Sodium Chloride 0.9% 1,000 ML IV SCH (17:12)
--- NOTE | 2018-05-23 20:17 | CP.PCM.PN ---
Subjective - Date & Time of Evaluation Date of Evaluation: 05/23/18 Time of Evaluation: 20:17 - Subjective Subjective: H&P dictated #[id number] Objective - Vital Signs/Intake and Output Vital Signs (last 24 hours): Temp Pulse Resp BP Pulse Ox 97.9 F 63 18 114/78 99 05/23/18 19:55 05/23/18 19:55 05/23/18 12:00 05/23/18 19:55 05/23/18 19:55 - Medications Medications: Current Medications Sodium Chloride (Sodium Chloride 0.9%) 1,000 mls @ 100 mls/hr IV .Q10H NORA Last Admin: 05/23/18 17:12 Dose: 100 mls/hr - Labs Labs: 05/23/18 12:46 05/23/18 12:46 PT 13.0 SECONDS (9.7-12.2) H 05/23/18 12:46 INR 1.2 05/23/18 12:46 APTT 36 SECONDS (21-34) H 05/23/18 12:46
[2018-05-23] MEDS ORDERED: Influenza Vaccine 60 mcg/0.5 mL SYR (4YR UP) IM ONE (22:41)
[2018-05-24 01:44] VITALS: RESP 20
[2018-05-24] MEDS: Sodium Chloride 0.9% 1,000 ML IV SCH ×3 (03:44→13:54)
--- NOTE | 2018-05-24 07:33 | HP ---
CHIEF COMPLAINT: Pain in the left flank region, increased frequency, urgency of urination for the past three days, feeling pressure in the left side of the flank region. HISTORY OF PRESENT ILLNESS: Mrs. Leone is a 32-year-old female who had multiple admissions in the past, known to Dr. Kincaid who was admitted to [facility] for renal stones about six to seven months ago. The stone was large and required nephrostomy tube, had poorly functioning left kidney, underwent stent placement in 04/2018 who has been following up with Dr. Kincaid frequently, came into the emergency room as recommended by Dr. Kincaid for possible admission and for possible evaluation of stent position and removal. When I examined the patient, the patient denies any headache, dizziness. Denies any chest pain, shortness of breath or wheezing. Denies any nausea, but has been complaining of pulling sensation in the left flank region and left lower quadrant with increased frequency, urgency, and when she sits upright she feels pressure in the left side of the abdomen. Denies any fevers. Denies any other complaints. PAST MEDICAL HISTORY: As described renal stones, history of right ovarian cyst, asthma. PAST SURGICAL HISTORY: Underwent tubal ligation, underwent nephrostomy on the left side, lithotripsy. FAMILY HISTORY: Mother has hypertension and diabetes. PERSONAL HISTORY: She is single, having four children, lives with her boyfriend. SOCIAL HISTORY: Denies alcohol, smokes 5 to 10 cigarettes per day. Denies any other drug abuse. ALLERGIES: SHE HAS FOOD ALLERGIES. MEDICATIONS: None at home. REVIEW OF SYSTEMS: As described in history of present illness. All other systems reviewed and were found to be negative. PHYSICAL EXAMINATION: GENERAL: Young female, lying in bed, in no acute distress. VITAL SIGNS: Blood pressure 112/73, pulse 67, respirations 20, temperature 98 degrees Fahrenheit, O2 saturations 99% on room air. HEENT: Pupils equal, round, and reacting to light and accommodation. Extraocular muscles are intact. No icterus. No pallor. No oral thrush. No pharyngeal congestion. NECK: Supple. No JVD. LUNGS: Bilateral vesicular breath sounds. No wheezing. No rhonchi. CVS: S1 and S2 present. Regular. ABDOMEN: Soft. Bowel sounds are present. There is tenderness in the left flank region with minimal guarding. No rigidly. No rebound tenderness noted. BITUMINOUS DISTRIBUTOR OPERATOR: Alert, awake, and oriented x3. No focal deficits noted. EXTREMITIES: No edema. Palpable peripheral pulses. LABORATORY DATA: Labs done from the emergency room; WBC 4.9, hemoglobin 13.4, hematocrit 39.3, platelets 202. PT 13, INR 1.2, PTT 36. Sodium 139, potassium 3.7, chloride 103, bicarb 25, BUN 15, creatinine 1, glucose 101, calcium 9.6, total bilirubin 0.5. AST 25, ALT 10, alkaline phosphatase 70. Total protein 8.2. Albumin 4.9, lipase 217. UA; specific gravity 1.029, pH 5, protein 2+, blood 1+, leukocyte esterase 3+, wbc's 44, rbc's 36. Urine drug screen positive for cannabinoids. Chest x-ray; discoid atelectasis in the right mid lung. Abdomen and pelvis CT was consistent left ureteral stent, 3 mm ureteral calculus identified along the medial aspect of [id number] ureteral stent, 3 mm left mid pole and 6 mm left lower pole non-obstructing calculi, atropic left kidney, no hydronephrosis. Vaginal, abdomen, and pelvis ultrasound; cyst measuring maximally 0.3 x 0.2 x 0.2 cm in the endometrial-myometrial junction, two somewhat heterogeneous irregular right ovarian cysts measuring 1.3 cm and 1.2 cm, possibly ruptured hemorrhagic cyst. A six-week ultrasound followup may be considered. Renal scan done; results pending. ASSESSMENT AND PLAN: A young female with past medical history of asthma, multiple renal stones, status post left nephrostomy, status post lithotripsy, status post left ureteral stent placement, admitted for increased frequency, urgency of urination and left flank pain. CT and ultrasound consistent with left-sided multiple renal stones with stent in place. Renal scan report pending, urinalysis consistent with urinary tract infection and the patient is being admitted for further management. 1. Urinary tract infection, rule out urosepsis. 2. Left flank pain. 3. Nephrolithiasis, multiple, left-sided. 4. Status post left nephrostomy and stent placement. PLAN: The patient is being admitted to med-surg floor, received Rocephin in the emergency room. We will continue with Rocephin 1 g daily, continue with IV fluids, pain management. Follow up with blood culture and urine culture results. Followup with renal scan reports. Obtain Urology consult with Dr. Kincaid. Urine test was done in the emergency room. We will give pain medication as needed. We will add further recommendations as her clinical course progresses. Kashif Wayne MD
[2018-05-24 08:03] VITALS: BP 99/57; PULSE 57; TEMP 98.5; O2SAT 98
--- NOTE | 2018-05-24 09:25 | CP.PCM.PN ---
Subjective - Date & Time of Evaluation Date of Evaluation: 05/24/18 Time of Evaluation: 09:25 - Subjective Subjective: Progress note dictated #[id number] Objective - Vital Signs/Intake and Output Vital Signs (last 24 hours): Temp Pulse Resp BP Pulse Ox 98.5 F 57 L 20 99/57 L 98 05/24/18 08:00 05/24/18 08:00 05/24/18 08:00 05/24/18 08:00 05/24/18 08:00 Intake and Output: 05/24/18 05/24/18 06:59 18:59 Intake Total 200 Balance 200 - Medications Medications: Current Medications Sodium Chloride (Sodium Chloride 0.9%) 1,000 mls @ 100 mls/hr IV .Q10H NORA Last Admin: 05/24/18 03:44 Dose: Not Given Influenza Virus Vaccine (Flucelvax Quad [id number] Syr) 60 mcg IM .ONCE ONE Stop: 05/25/18 10:01 Pneumococcal Polyvalent Vaccine (Pneumovax 23 Vaccine) 0.5 ml IM .ONCE ONE Stop: 05/25/18 10:01 - Labs Labs: 05/23/18 12:46 05/23/18 12:46 PT 13.0 SECONDS (9.7-12.2) H 05/23/18 12:46 INR 1.2 05/23/18 12:46 APTT 36 SECONDS (21-34) H 05/23/18 12:46
[2018-05-24] MEDS ORDERED: Pneumococcal 23-Valent Vaccine IM ONE (13:00)
[2018-05-24] MEDS ORDERED: Influenza Vaccine 60 mcg/0.5 mL SYR (4YR UP) IM ONE (13:00)
--- NOTE | 2018-05-24 13:05 | PCM.URO ---
Urology Progress Note - Objective Lab Studies: Reviewed (pt can be discharged home) Lab Results Last 24 Hours: Laboratory Results - last 24 hr 05/23/18 05/23/18 05/23/18 12:46 12:46 12:46 WBC 4.9 RBC 4.70 Hgb 13.4 Hct 39.3 MCV 83.6 D MCH 28.5 MCHC 34.1 RDW 14.0 Plt Count 202 MPV 7.9 Neut % (Auto) 62.0 Lymph % (Auto) 23.1 [place] % (Auto) 14.1 H Eos % (Auto) 0.4 Baso % (Auto) 0.4 Neut # (Auto) 3.1 Lymph # (Auto) 1.1 [place] # (Auto) 0.7 Eos # (Auto) 0.0 Baso # (Auto) 0.0 PT 13.0 H INR 1.2 APTT 36 H Sodium 139 Potassium 3.7 Chloride 103 Carbon Dioxide 25 Anion Gap 15 BUN 15 Creatinine 1.0 Est GFR ( Amer) > 60 Est GFR (Non-Af Amer) > 60 Random Glucose 101 D Calcium 9.6 Total Bilirubin 0.5 AST 25 ALT 10 Alkaline Phosphatase 70 Total Protein 8.2 Albumin 4.9 Globulin 3.3 Albumin/Globulin Ratio 1.5 Lipase 217 Urine Color Urine Clarity Urine pH Ur Specific [place] Urine Protein Urine Glucose (UA) Urine Ketones Urine Blood Urine Nitrate Urine Bilirubin Urine Urobilinogen Ur Leukocyte Esterase Urine WBC (Auto) Urine RBC (Auto) Ur Squamous Epith Cells Urine Bacteria Urine HCG, Qual Urine Opiates Screen Urine Methadone Screen Ur Barbiturates Screen Ur Phencyclidine Scrn Ur Amphetamines Screen U Benzodiazepines Scrn U Oth Cocaine Metabols U Cannabinoids Screen 05/23/18 05/23/18 05/24/18 12:55 12:55 00:54 WBC RBC Hgb Hct MCV MCH MCHC RDW Plt Count MPV Neut % (Auto) Lymph % (Auto) [place] % (Auto) Eos % (Auto) Baso % (Auto) Neut # (Auto) Lymph # (Auto) [place] # (Auto) Eos # (Auto) Baso # (Auto) PT INR APTT Sodium Potassium Chloride Carbon Dioxide Anion Gap BUN Creatinine Est GFR ( Amer) Est GFR (Non-Af Amer) Random Glucose Calcium Total Bilirubin AST ALT Alkaline Phosphatase Total Protein Albumin Globulin Albumin/Globulin Ratio Lipase Urine Color Yael Urine Clarity Hazy Urine pH 5.0 Ur Specific [place] 1.029 Urine Protein 2+ H Urine Glucose (UA) Normal Urine Ketones Trace Urine Blood 1+ H Urine Nitrate Negative Urine Bilirubin Negative Urine Urobilinogen Normal Ur Leukocyte Esterase 3+ H Urine WBC (Auto) 44 H Urine RBC (Auto) 36 H Ur Squamous Epith Cells 33 H Urine Bacteria Occ H Urine HCG, Qual Negative Urine Opiates Screen Negative Urine Methadone Screen Negative Ur Barbiturates Screen Negative Ur Phencyclidine Scrn Negative Ur Amphetamines Screen Negative U Benzodiazepines Scrn Negative U Oth Cocaine Metabols Negative U Cannabinoids Screen Positive H Intake & Output: Intake & Output 05/23/18 05/24/18 05/24/18 18:59 06:59 18:59 Intake Total 200 Balance 200 Weight 209 lb Intake: Intake, IV Amount 200 Right Antecubital 200 Other: # Voids Urine, Voided 2 Vital Signs: Vital Signs - 24 hr 05/23/18 05/23/18 05/23/18 15:52 18:45 19:55 Temperature 98.7 F 97.9 F Pulse Rate 65 63 Respiratory Rate Blood Pressure 110/75 114/78 O2 Sat by Pulse 97 98 99 Oximetry 05/23/18 05/24/18 05/24/18 21:11 00:00 08:00 Temperature 98.0 F 98 F 98.5 F Pulse Rate 67 64 57 L Respiratory 20 20 Rate Blood Pressure 112/73 104/63 99/57 L O2 Sat by Pulse 99 94 L 98 Oximetry
--- NOTE | 2018-05-24 14:19 | PN ---
DATE: 05/24/2018 SUBJECTIVE: The patient was seen and examined at bedside. The patient denies any acute pain. Denies any new complaints from last night. Denies any headaches, dizziness, or any chest pain or shortness of breath. All other systems reviewed and were found to be negative. PHYSICAL EXAMINATION: GENERAL: Young female, lying in bed, in no acute distress. VITAL SIGNS: Blood pressure 99/57, pulse 57, respiration 20, temperature 98.5 degrees Fahrenheit, and O2 sat 98% on room air. HEENT: Pupils equal, round, reactive to light and accommodation. Extraocular muscles intact. No icterus. No pallor. No oral thrush. No pharyngeal congestion. NECK: Supple. No JVD. LUNGS: Bilateral vesicular breath sounds. No wheezing. No rhonchi. CARDIOVASCULAR SYSTEM: S1 and S2 present, regular. ABDOMEN: Soft. Bowel sounds present. Tenderness in the left renal angle noted. CENTRAL NERVOUS SYSTEM: Alert, awake, oriented x3. No focal deficits noted. EXTREMITIES: No edema. Palpable peripheral pulses. MEDICATIONS: Include intravenous fluids, normal saline at 100 mL an hour. LABORATORY DATA: Urine test is negative. Urine culture results pending. Renal scan results pending. ASSESSMENT AND PLAN: Young female with past medical history of asthma, ovarian cyst, nephrolithiasis status post nephrostomy, status post left ureteral stent placement with multiple nonobstructive renal stones, admitted for left flank pain, urinary tract infection. The patient received Rocephin in the emergency room. Will continue with Rocephin 1 g daily pending urine culture results. Continue with pain medication as needed. Urology followup with Dr. Kincaid. Follow up with urine culture results. Kashif Wayne MD
--- NOTE | 2018-05-24 19:16 | NM ---
Date of service: 05/23/2018 PROCEDURE: Renal scan and flow study. HISTORY: left obstructed kidney COMPARISON: 05/23/2018 CT abdomen and pelvis. Summary of findings on the comparison examination: Left ureteral stent. 3 mm ureteral calculus identified along the medial aspect of the mid to distal ureteral stent. 3 mm left midpole and 6 mm left lower pole nonobstructing calculi. Atrophic left kidney. No hydronephrosis. TECHNIQUE: 18.1 mCi technetium 99 M DTPA administered intravenously. FINDINGS: Right Kidney: Flow component: Normal flow to the right kidney. Time to peak: 6.5 min Peak to T1/2 Peak: 7 min Left Kidney: Flow component: Diminished flow/perfusion of known atrophic left kidney. Time to peak: 1.5 min Peak to T1/2 Peak: Not applicable. Split Renal Function: Right kidney 86% % Left kidney 14% % IMPRESSION: Poorly perfused, poorly functioning and atrophic left kidney. Contribution of left kidney 2 overall perfusion is 14%, the remaining 86% in the right kidney.
== END 2018-05-24 17:36 | disposition home or self-care (01) | DRG 320 ==
LOC: C.ER 11:46 → C.9E 18:06 → C.3T 21:07
PROVIDERS: ADMIT Internal Medicine; ATTEND Internal Medicine
DX: N39.0 Urinary tract infection, site not specified (principal); N18.9 Chronic kidney disease, unspecified; J45.909 Unspecified asthma, uncomplicated; N20.0 Calculus of kidney; Z87.442 Personal history of urinary calculi